=== PATIENT | female | born 1995 | race Caucasian/White ===

== ENCOUNTER 2023-06-09 07:39 | Emergency (ER) | payer OTHER, SELFPAY ==
--- NOTE | ~2023-06-09 | US_ITS ---
EXAMINATION: US VENOUS WITH DOPPLER UPPER EXTREMITY, LEFT CLINICAL INFORMATION: Left arm heaviness. Patient on control pills COMPARISON: None available. TECHNIQUE: Ultrasound of the upper extremity is performed using compression sonography and color and pulse Doppler flow with assessment of augmentation of flow. There is also imaging and Doppler assessment of the jugular and subclavian veins. Spectral analysis with color-flow imaging is performed. FINDINGS: Respiratory variation are noted throughout the upper extremity including the axillary, brachial, basilic, cephalic and radial and ulnar veins. There is normal flow in the internal jugular and subclavian veins. There is no visible deep or superficial thrombophlebitis. US/US venous duplex UE LT IMPRESSION: No DVT demonstrated in the left upper extremity.
--- NOTE | 2023-06-09 07:47 | ECG_ITS ---
Test Reason : tachy Blood Pressure : / mmHG Vent. Rate : 104 BPM Atrial Rate : 104 BPM P-R Int : 124 ms QRS Dur : 078 ms QT Int : 330 ms P-R-T Axes : 037 055 055 degrees QTc Int : 433 ms Sinus tachycardia Otherwise normal ECG No previous ECGs available Referred By: Generic ED Physician Electronically Signed By:ARABELLA CHILD
[2023-06-09 08:03] VITALS: BP 137/74; PULSE 116; RESP 18; TEMP 34.3; O2SAT 100; BMI 26.9
[2023-06-09 08:12] LABS: MANUAL DIFF FLAG NO
[2023-06-09 08:15] LABS: Basophils Percent Auto 0.5 % (0-2); Eosinophils Absolute Auto 0.1 X10*3/uL (0.0-0.4); Eosinophils Percent Auto 2.2 % (0-4); Hematocrit 42.4 % (37.0-47.0); Hemoglobin 14.4 g/dl (12.0-16.0); Imm Gran Abs Auto 0.01 X10*3/uL (0.00-0.03); Imm Gran Pct Auto 0.2 % (0.0-0.4); Lymphocytes Absolute Auto 1.8 X10*3/uL (1.2-4.9); Lymphocytes Percent Auto 28.5 % (20-40); Mean Corpuscular Hemoglobin 28.7 pg (27.0-33.0); Mean Corpuscular Volume 84.6 fL (80.0-98.0); Mean Platelet Volume 9.5 fL (9.4-12.3); Monocytes Absolute Auto 0.3 X10*3/uL (0.1-1.2); Monocytes Percent Auto 4.5 % (2-11); Neutrophils Absolute Auto 4.1 x10*3/uL (2.0-8.3); Neutrophils Percent Auto 64.1 % (45-73); Platelet Count 267 X10*3/uL (160-400); Red Blood Count 5.01 X10*6/uL (4.20-5.50); Red Cell Distribution Width 12.6 % (11.0-16.0); White Blood Count 6.5 X10*3/uL (4.8-10.8)
[2023-06-09 08:27] LABS: Alanine Aminotransferase 30 U/L (0-31); Albumin Level 4.3 g/dL (3.5-5.0); Alkaline Phosphatase 83 U/L (39-117); Anion Gap 13 (12-20); Aspartate Amino Transferase 16 U/L (5-31); Bilirubin Direct 0.3 mg/dL (0.0-0.5); Bilirubin Total 1.2 mg/dL (0.0-1.0); Blood Urea Nitrogen 13 mg/dL (9-16); Calcium 9.2 mg/dL (8.4-10.2); Carbon Dioxide 21 mmol/L (22-29); Chloride 112 mmol/L (96-108); Creatinine Clr Calc Pharmacy 82.5; Estimated Glomerular Filt Rate > 60; Glucose Random 93 mg/dL (60-115); Lipase 22 U/L (8-78); Potassium 3.7 mmol/L (3.3-5.1); Sodium 142 mmol/L (135-145); Total Protein 7.2 g/dL (6.5-8.0)
[2023-06-09 08:34] LABS: Troponin-I High Sensitivity < 2.7 ng/L (<3.5-17.0)
[2023-06-09 10:25] VITALS: BP 119/78; PULSE 84; RESP 12; O2SAT 100
--- NOTE | 2023-06-09 11:05 | ED.ARRPALP ---
HPI - Arrhythmia/Palpitations General Chief Complaint: Arrhythmia/Palpitations Stated Complaint: Heart racing, heaviness in arms Time Seen by Provider: 06/09/23 10:51 Source: patient Mode of arrival: ambulatory Limitations: no limitations History of Present Illness HPI narrative: 28-year-old female who presents emergency department for evaluation of left arm heaviness x3 weeks with palpations shortness of breath dizziness and diaphoresis this morning. The patient states that over the last 3 weeks she has had heaviness in her left arm. She states that she gets that almost daily and heaviness will last all day. She states that at night when she is relaxed the heaviness seems to resolve. She denied numbness or weakness of the left upper extremity. She has had no clumsiness of the arm, she denies difficulty grasping things ordered having difficulty with dropping things. She denied neck pain. She denies weight loss, weight gain or night sweats. She states that this morning she rolled over and woke up and felt her heart was racing. She put on her Apple watch and her pulse was 140-150 beats per minute. She felt short of breath, lightheaded, dizzy and had sweats. She did feel palpitations but denied chest pain. Her symptoms resolved after an hour and a half. The patient does take control pills but has not noticed any significant swelling of her upper or lower extremities. Related Data Allergies Allergy/AdvReac Type Severity Reaction Status Date / Time No Known Allergies Allergy Verified 06/09/23 08:07 [No Known Allergies*] Review of Systems Review of Systems: Yes all other systems are reviewed and are negative [facility] Past Medical History [facility] Narrative: Past medical history: Asthma, and anxiety which she states she does not take medications for. Social history: She denies tobacco, alcohol and drug use Social History Social History Alcohol intake: never Smoked in Last 30 Days: No Use of substances other than those prescribed or required for medical reasons: No Advance Directives: No Advance Directives Information Provided: No Patient : No Physical Exam Vital Signs: Vital Signs: Last Vital Signs Temp 93.7 F L 06/09/23 08:03 Pulse 84 06/09/23 10:25 Resp 12 06/09/23 10:25 BP 119/78 06/09/23 10:25 Pulse Ox 100 06/09/23 10:25 O2 Del Method Room Air 06/09/23 10:25 BMI result Body Mass Index 26.9 Vital signs were normal except for low temperature of 93.7 degrees, I will repeat patient's temperature he was admitted not think this is accurate reading Exam: General: Awake, alert in no distress Head: Normocephalic, atraumatic EENT: PERRL, Lids normal, sclera normal, conjunctiva normal, nose normal , ears normal, throat without erythema or exudates Neck: Supple, no adenopathy, no trachea midline or C-spine tenderness Lung: breath sounds symmetric, no wheezing, rales or rhonchi Chest: symmetric movement, nontender Heart: regular rate and rhythm, normal S1, S2 no murmurs or rubs Abdomen: soft, non-tender, nondistended, normal bowel sounds Back: no vertebral tenderness, no CVAT Extremities: Right upper extremity: Neurovascular intact Left upper extremity: Full range of motion of the shoulder, elbow, wrist and hand joints both actively and passively with no discomfort, no difference in the size of the patient's left and right upper extremity, no obvious edema noted, neurovascular intact Neuro: Awake, alert, oriented, normal speech, cranial nerves intact, moves all extremities symmetrically Psych: Pleasant, cooperative Medical Decision Making Medical Decision Making MDM Narrative: 28 year old female with history of asthma and anxiety who presents emergency department for evaluation of 3 weeks of heaviness in her left upper extremity and new onset of palpitations this morning with a heart rate ranging between 104-150 beats per minute associated with lightheadedness, diaphoresis, shortness of breath, diaphoresis and sensation of palpitations but no chest pain. Patient's physical examination was unremarkable. Following evaluation was ordered: CBC, BMP, liver panel, lipase, troponin, urinalysis, urine test, TSH with reflex T4, EKG, venous duplex ultrasound of the left upper extremity, cardiac monitoring, O2 saturation monitor 11:24 My independent interpretation patient's laboratory evaluation is as follows: CBC and CMP were unremarkable. High sensitive troponin I was below detectable limits. Lipase was negative. My independent interpretation patient's 12 EKG is as follows: Sinus tachycardia with rate of 104, normal AL interval, QRS duration QTC interval, no ST segment elevation, no ST segment depression, no T-wave abnormalities, no PACs no PVCs 13:34 Patient duplex ultrasound of her left upper extremity revealed no DVT which is reassuring I did discuss this finding with the patient and workup of palpitations. I also felt the patient could benefit from getting help with her anxiety therefore she will be referred to [facility]. She was given printed and verbal instructions and discharged home Differential Diagnosis Differential Diagnoses: The differential diagnosis associated with the presentation includes Differential diagnosis includes was not limited to palpitations, anxiety, panic attack, cervical radiculopathy, left upper extremity DVT Admission/Observation Consideration of admission/observation: Escalation of care including admission/observation considered Lab Data MDM Lab Attestation statement: I reviewed the patient's lab results. See above from my interpretation 06/09/23 08:08 06/09/23 08:08 Labs: Lab Results 06/09/23 Range/Units 08:08 WBC 6.5 (4.8-10.8) X10*3/uL RBC 5.01 (4.20-5.50) X10*6/uL Hgb 14.4 (12.0-16.0) g/dl Hct 42.4 (37.0-47.0) % MCV 84.6 (80.0-98.0) fL MCH 28.7 (27.0-33.0) pg MCHC 34.0 (31.0-35.0) g/dl RDW 12.6 (11.0-16.0) % Plt Count 267 (160-400) X10*3/uL MPV 9.5 (9.4-12.3) fL Immature Gran % (Auto) 0.2 (0.0-0.4) % Neut % (Auto) 64.1 (45-73) % Lymph % (Auto) 28.5 (20-40) % Webster % (Auto) 4.5 (2-11) % Eos % (Auto) 2.2 (0-4) % Baso % (Auto) 0.5 (0-2) % Lymph # (Auto) 1.8 (1.2-4.9) X10*3/uL [place] # (Auto) 0.3 (0.1-1.2) X10*3/uL Eos # (Auto) 0.1 (0.0-0.4) X10*3/uL Baso # (Auto) 0.0 (0.0-0.2) X10*3/uL Abs Immat Gran (auto) 0.01 (0.00-0.03) X10*3/uL Absolute Neuts (auto) 4.1 (2.0-8.3) x10*3/uL Absolute Nucleated RBC 0.000 (0.0-0.012) X10*3/uL Nucleated RBC % (auto) 0.0 (0.0-0.2) /100WBC Sodium 142 (135-145) mmol/L Potassium 3.7 (3.3-5.1) mmol/L Chloride 112 H (96-108) mmol/L Carbon Dioxide 21 L (22-29) mmol/L Anion Gap 13 (12-20) BUN 13 (9-16) mg/dL Creatinine 0.83 (0.5-1.4) mg/dL Estim Creat Clear Calc 82.5 Estimated GFR > 60 Random Glucose 93 (60-115) mg/dL Calcium 9.2 (8.4-10.2) mg/dL Total Bilirubin 1.2 H (0.0-1.0) mg/dL Direct Bilirubin 0.3 (0.0-0.5) mg/dL AST 16 (5-31) U/L ALT 30 (0-31) U/L Alkaline Phosphatase 83 (39-117) U/L Troponin I High Sens < 2.7 (<3.5-17.0) ng/L Total Protein 7.2 (6.5-8.0) g/dL Albumin 4.3 (3.5-5.0) g/dL Lipase 22 (8-78) U/L TSH 1.51 (0.32-4.0) uIU/mL Independent Interpretation I performed an independent interpretation of an: EKG (See above my interpretation) Radiology Impression Discussion of test interpretation with radiology: I have reviewed the radiologist's reading. Radiologist Impression: US venous duplex UE LT IMPRESSION: No DVT demonstrated in the left upper extremity. Dictated By: Bridgette Barbosa MD Independent Historian Clinical information obtained from an independent historian. History obtained from or confirmed by: Spouse Discharge Plan Discharge Clinical Impression: Palpitations, Anxiety Patient Disposition: Home, Self-Care Instructions: Heart Palpitations (ED), Anxiety (ED) Additional Instructions: Your blood work was normal. Your EKG was unremarkable. The duplex ultrasound of your left upper extremity did not reveal any blood clots which is reassuring. At this time I do did not have a clear cause for the heaviness that your experiencing in your arm. If you developed swelling, weakness, numbness or any other concerning symptoms involving your arms we then please return to the emergency department so that we can re-evaluate. At this time I do not think that you need further workup for your palpitations unless you continue to get them frequent then you can follow-up with our cardiology or your primary care doctor. I do want you to follow-up with [facility] to see if they can get you a therapist to help you with your anxiety and possibly get a prescribing provider to help you if you need medications. [facility] phone number is . There is also another service called [employer] if [facility] cannot help Follow-up with your doctor in 2 days. Please return to the emergency department if your symptoms get worse or if you develop any symptoms that are concerning to you. Try calling the following numbers to see if you can get a primary care provider to help you with your medical problems. [facility] PCP referral line [facility] Adult primary care and family medicine [facility] Referrals: Alex Fatima MD [Physician] - 2 weeks (Palpitations)
[2023-06-09 12:12] LABS: TSH reflex Free T4 1.51 uIU/mL (0.32-4.0)
== END 2023-06-09 13:53 | disposition home or self-care (01) ==
PROVIDERS: Emergency Provider Emergency Medicine Emergency Medical Services
DX: R00.2 Palpitations (principal); F41.9 Anxiety disorder, unspecified; M79.602 Pain in left arm; Z79.899 Other long term (current) drug therapy
CPT/HCPCS: 36415; 80048; 80076; 83690; 84443; 84484; 85025; 93005; 93971; 99284; 99285

== ENCOUNTER → 2023-06-09 07:47 | Outpatient (BNV) | payer OTHER, SELFPAY | PROVIDERS: Emergency Provider Emergency Medicine Emergency Medical Services; Visit Provider Internal Medicine | DX: R00.0 Tachycardia, unspecified (principal) | CPT/HCPCS: 93010 ==

== ENCOUNTER 2023-09-26 10:42 | Outpatient (AMB) | payer OTHER, SELFPAY ==
--- NOTE | 2023-09-26 10:49 | A.OFFPC_ITS ---
Vital Signs 09/26/23 10:52 Height 5 ft Weight 144 lb BMI 28.1 BP 121/74 Blood Pressure Location Rt brachial Position Sitting Respiration 13 Pulse 106 H Pulse Source Pulse Oximeter Temp 97.9 F Temp Source Temporal Artery Scan Pulse Oximetry (%) 100 Oxygen Delivery Method Room Air Intake Visit Reasons: HEAD GROWER, request physical Intake Note: Patient is here for a new patient appointment. Patient reports she has concerns for anxiety and tachycardia- was in the ER June 2023. Patient reports having constipation this past week- and now there is some red in her stool. Patient reports she needs her inhaler, Albuterol for rescue, and refilled as well. Patient was previously on flovent but has not needed it in quite some time. Staff Nurse Midwife Required: No Accompanied by: Self / Same As Patient Allergies amoxicillin Allergy (Severe, Verified 09/26/23 11:38) Anxiety Medication List - Last Reconciled 09/26/23 by Zahra Nova, [facility]- albuterol sulfate 90 mcg/actuation 2 inhalations inhalation Q4-6H PRN norethindrone-e.estradiol-iron 1 mg-20 mcg (21)/75 mg (7) (07/23 (28)) 1 tab PO DAILY Tobacco use date assessed: 09/26/23 Dental Screening Dental Screen Date: 09/26/23 Did you have a dental visit in the last 12 months?: No Did you have a dental problem in the last 6 months where you did not have access to dental care?: Yes Was dental information given to patient?: Patient has dentist HPI HPI Comments History of Present Illness Details 28-year-old female with generalized anxi ety disorder, mild intermittent asthma, seasonal allergies Health maintenance Pap UTD Vaccines: declines flu , unsure about Tdap however declines today [facility]ists [employer] Here today to establish care. No previous medical records accept for the emergency room visit in June for me to review prior to today's visit. tachycardia - monitors on watch at home. Feels like its better since onset. Feels this is related to anxiety. Denies chest pain or shortness and breath. IVETT - was on medication in the past. Paroxetine, unsure of dose. Took for 3 months and then ran out of refills this was in 2021. [place] well while taking it. Interested in restarting. Active with counseling in the past. Would like new referral. No self medication. Asthma- was active w/ Pulm in the past. Not currently on maintenance inhaler.At this time, feels her sx are pretty well controlled. Has used Flonase in the past with + results. Admits an allergic component to her symptoms. Not on a daily antihistamine. constipation - over the last few days, noted some BRB on stool. Does not eat a lot of fiber. started to take a multivitamin. [facility] Medical History (Updated 09/26/23 @ 12:02 by Zahra Nova, [facility]) Anxiety Surgical History (Updated 09/26/23 @ 11:00 by Sallie Morin CMA) [place] teeth extracted Family History (Updated 09/26/23 @ 11:01 by Sallie Morin CMA) Other Mental health disorder Substance use disorder Social History (Updated 09/26/23 @ 11:02 by Sallie Morin CMA) Household Members: Spouse Housing: House Are you a primary child day care center worker to a significant other at home: No Do you presently have visiting nurse or other home services: No 75 years or older and lives alone: No Alcohol intake: never Patient Tobacco Use Status: Never used Tobacco e-Cigarette/Vaping Use: Never Used service: Yes Current occupational status: employed Current occupation: Patient works at the [employer] Sexual orientation: Straight/Heterosexual Gender identity: Female Cognitive needs: No Hearing needs: No Vision needs: Yes (needs a vision exam ) Questionnaire PHQ-9 Over the last 2 weeks, how often have you been bothered by any of the following problems? 1. Little interest or pleasure in doing things: not at all 2. Feeling down, depressed, or hopeless: not at all 3. Trouble falling or staying asleep, or sleeping too much: several days 4. Feeling tired or having little energy: several days 5. Poor appetite or overeating: several days 6. Feeling bad about yourself - or that you are a failure or have let yourself or your family down: nearly every day 7. Trouble concentrating on things, such as reading the newspaper or watching television: not at all 8. Moving or speaking so slowly that other people could have noticed. Or the opposite - being so fidgety or restless that you have been moving around a lot more than usual: not at all 9. Thoughts that you would be better off or of hurting yourself in some way: not at all Total score: 6 Depression Screening Interpretation: Positive Depression Screening Follow-up: Existing condition and Change in Medication Depression Screening Done: Yes 48845 - PHQ-9 Billing: Yes Source: Developed by Drs. Oliverio Walton, Avelina Humphreys, Jacek Plata and colleagues, with an educational coy from [employer]. AUDIT C Alcohol Use Questionnaire (AUDIT-C) 1. How often do you have a drink containing alcohol?: Never 2. How many drinks containing alcohol do you have on a typical day when you are drinking?: 1 or 2 3. How often do you have six or more drinks on one occasion?: Never Total Score: 0 Score Reviewed/Action Taken: Yes IVETT-7 AMB Questionnaire IVETT-7 Feeling nervous, anxious, or on edge: 3 = Nearly every day Not being able to stop or control worryin = Nearly every day Worrying too much about different things: 3 = Nearly every day Trouble relaxin = Nearly every day Being so restless that it is hard to sit still: 0 = Not at all Becoming easily annoyed or irritable: 0 = Not at all Feeling afraid as if something awful might happen: 3 = Nearly every day Total IVETT-7 score (0-4 normal; 5-9 mild; 10-14 moderate; 15-21 severe): 15 Source: Developed by Drs. Oliverio Walton, Avelina Humphreys, Jacek Plata and colleagues, with an educational coy from [employer]. IVETT-7 Assessment Billing IVETT-7 Assessment Tool: IVETT-7 Assessment 88491 ACT Questionnaire In the past 4 weeks, how much of the time did your asthma keep you from getting as much done at work, school or at home?: None of the time During the past 4 weeks, how often have you had shortness of breath?: Not at all During the past 4 weeks, how often did your asthma symptoms wake you up at night or earlier than usual in the morning?: Not at all During the past 4 weeks, how often have you had to use your rescue inhaler or nebulizer medication?: Not at all How would you rate your asthma control during the past 4 weeks?: Well controlled ACT Interpretation: Negative Score: 24 Review of Systems Const All systems reviewed & are unremarkable except as noted in HPI and below Physical exam (Primary Care) Vital Signs: Last Vital Signs Temp 97.9 F 09/26/23 10:52 Pulse 106 H 09/26/23 10:52 Resp 13 09/26/23 10:52 BP 121/74 09/26/23 10:52 Pulse Ox 100 09/26/23 10:52 Oxygen Delivery Method Room Air 09/26/23 10:52 BMI result Body Mass Index 28.1 Tobacco/Smoking Status: Tobacco use Status Tobacco use date assessed 09/26/23 09/26/23 11:02 Patient Tobacco Use Status Never used Tobacco 09/26/23 11:02 e-Cigarette/Vaping Use Never Used 09/26/23 11:02 PHQ-9: PHQ-9 Score PHQ-9: Total score 6 09/26/23 11:47 Depression Screening Interpretation: Positive Depression Screening Follow-up: Existing condition and Change in Medication Const Other: awake alert NAD RRR LS CTAB mildly anxious, appropriate and pleasant Assessment and Plan Assessment & Plan (1) IVETT (generalized anxiety disorder): Comment: start paroxetine 10mg QD, refer to counseling bring back in 6 weeks, titrate med to effect Code(s): F41.1 - Generalized anxiety disorder (2) Mild intermittent asthma in adult without complication: Comment: on TARA only with sparing use Plan: continue was on flovent in past, does not feel its needed at this time Code(s): J45.20 - Mild intermittent asthma, uncomplicated (3) Seasonal allergies: Comment: start zyrtec 10mg QD goal would be to help control her asthma sx which seem to have an allergy component and to help her anxiety. Code(s): J30.2 - Other seasonal allergic rhinitis (4) Constipation: Comment: w some hemorrhoidal bleeding advised to increase fiber in diet by using things such as Fiber 1 products if cont to be an issue, will need to discuss other options for treatment Code(s): K59.00 - Constipation, unspecified Qualifiers: Constipation type: slow transit constipation Qualified Code(s): K59.01 - Slow transit constipation Plan: This note is constructed using voice recognition software. While every effort has been made to ensure accuracy in nurse, still errors may have been included Sometimes, these errors may affect the content or meaning of the given sentence . Total time spent caring for the patient today was 45 minutes. This includes time spent before the visit reviewing the chart, time spent during the visit, and time spent after the visit on documentation Orders: Referrals Counseling Referral F41.1 - Generalized anxiety disorder Medications: New albuterol sulfate 90 mcg/actuation 2 inhalations inhalation QID PRN 8.5 grams 0RF shortness of breath or wheezing paroxetine HCl 10 mg PO DAILY 30 tabs 1RF cetirizine (Zyrtec) 10 mg PO DAILY 90 tabs 0RF Review Flu Vaccine not done: patient reason Declined TDap/Td: 09/26/23 Coding Level of Care Code Est Pt Level 5 (62067) Diagnoses IVETT (generalized anxiety disorder) F41.1 Mild intermittent asthma in adult without complication J45.20 Seasonal allergies J30.2 Slow transit constipation K59.01 Constipation type: slow transit constipation Additional Codes IVETT-7 Assessment Billing - IVETT-7 Assessment Tool: IVETT-7 Assessment 67163 ([id number])
[2023-09-26 10:52] VITALS: BP 121/74; PULSE 106; RESP 13; TEMP 36.6; O2SAT 100; BMI 28.1
== END 2023-09-26 12:00 | disposition home or self-care (01) ==
PROVIDERS: PCP Nurse Practitioner Family; Visit Provider Nurse Practitioner Family
DX: J45.20 Mild intermittent asthma, uncomplicated (principal); F41.1 Generalized anxiety disorder; J30.2 Other seasonal allergic rhinitis; K59.01 Slow transit constipation
CPT/HCPCS: 96127; 99215

== ENCOUNTER 2023-11-22 09:50 | Outpatient (AMB) | payer OTHER, SELFPAY ==
--- NOTE | 2023-11-22 09:55 | A.OFFPC_ITS ---
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 Accompanied by: Self / Same As Patient Allergies amoxicillin Allergy (Severe, Verified 11/22/23 10:11) Anxiety Medication List - Last Reconciled 11/22/23 by Zahra Nova, [facility]- albuterol sulfate 90 mcg/actuation 2 inhalations inhalation QID PRN cetirizine (Zyrtec) 10 mg PO DAILY norethindrone-e.estradiol-iron 1 mg-20 mcg ()/75 mg () (07/23 ()) 1 tab PO DAILY paroxetine HCl 10 mg PO DAILY Tobacco use date assessed: 09/26/23 Dental Screening Dental Screen Date: 09/26/23 HPI HPI Comments History of Present Illness Details 28-year-old female with generalized anxi ety disorder, mild intermittent asthma, seasonal allergies Specialists [employer] Here today to follow-up on generalized anxiety disorder, constipation, seasonal allergies. Since last office visit in regards to her anxiety, Feels so much better, family and friends have noticed a great improvement. Taking in the AM with food. Did have headaches and GI upset in the first week. This remedied with taking with food. Did not start the Zyrtec. Afraid to mix with other meds. She will start taking this at bedtime as she continues to have seasonal allergy symptoms. Constipation is better, has improved since last visit. Does cont to have hemorrhoid however better than last visit. [facility] Medical History Anxiety Surgical History Word[place] teeth extracted Family History Other Mental health disorder Substance use disorder Social History Household Members: Spouse Housing: House Are you a primary home health care worker to a significant other at home: No Do you presently have visiting nurse or other home services: No 75 years or older and lives alone: No Alcohol intake: never Patient Tobacco Use Status: Never used Tobacco e-Cigarette/Vaping Use: Never Used service: No Current occupational status: employed Current occupation: Patient works at the [employer] Sexual orientation: Straight/Heterosexual Gender identity: Female Cognitive needs: No Hearing needs: No Vision needs: Yes (needs a vision exam ) Questionnaire PHQ-9 Over the last 2 weeks, how often have you been bothered by any of the following problems? 1. Little interest or pleasure in doing things: not at all 2. Feeling down, depressed, or hopeless: not at all 3. Trouble falling or staying asleep, or sleeping too much: not at all 4. Feeling tired or having little energy: not at all 5. Poor appetite or overeating: not at all 6. Feeling bad about yourself - or that you are a failure or have let yourself or your family down: not at all 7. Trouble concentrating on things, such as reading the newspaper or watching television: not at all 8. Moving or speaking so slowly that other people could have noticed. Or the opposite - being so fidgety or restless that you have been moving around a lot more than usual: not at all 9. Thoughts that you would be better off or of hurting yourself in some way: not at all Total score: 0 Depression Screening Interpretation: Negative Depression Screening Done: Yes 43075 - PHQ-9 Billing: Yes Source: Developed by Drs. Oliverio Walton, Avelina Humphreys, Jacek Plata and colleagues, with an educational coy from [employer]. IVETT-7 AMB Questionnaire IVETT-7 Date IVETT - 7 assessed: 11/22/23 Feeling nervous, anxious, or on edge: 1 = Several days Not being able to stop or control worryin = Several days Worrying too much about different things: 1 = Several days Trouble relaxin = Not at all Being so restless that it is hard to sit still: 0 = Not at all Becoming easily annoyed or irritable: 0 = Not at all Feeling afraid as if something awful might happen: 1 = Several days Total IVETT-7 score (0-4 normal; 5-9 mild; 10-14 moderate; 15-21 severe): 4 Source: Developed by Drs. Oliverio Walton, Avelina Humphreys, Jacek Plata and colleagues, with an educational coy from [employer]. IVETT-7 Assessment Billing IVETT-7 Assessment Tool: IVETT-7 Assessment 59406 ACT Questionnaire In the past 4 weeks, how much of the time did your asthma keep you from getting as much done at work, school or at home?: None of the time During the past 4 weeks, how often have you had shortness of breath?: Not at all During the past 4 weeks, how often did your asthma symptoms wake you up at night or earlier than usual in the morning?: Not at all During the past 4 weeks, how often have you had to use your rescue inhaler or nebulizer medication?: Not at all How would you rate your asthma control during the past 4 weeks?: Completely controlled ACT Interpretation: Negative Score: 25 Review of Systems Const All systems reviewed & are unremarkable except as noted in HPI and below Physical exam (Primary Care) Vital Signs: Last Vital Signs Temp 97.6 F 11/22/23 09:56 Pulse 89 11/22/23 09:56 Resp 13 11/22/23 09:56 BP 114/62 11/22/23 09:56 Pulse Ox 99 11/22/23 09:56 Oxygen Delivery Method Room Air 11/22/23 09:56 BMI result Body Mass Index 27.9 Tobacco/Smoking Status: Tobacco use Status Tobacco use date assessed 09/26/23 11/22/23 10:04 Patient Tobacco Use Status Never used Tobacco 11/22/23 10:04 e-Cigarette/Vaping Use Never Used 11/22/23 10:04 PHQ-9: PHQ-9 Score PHQ-9: Total score 0 11/22/23 10:11 Depression Screening Interpretation: Negative Const Other: awake alert NAD RRR LS CTAB Smiling, engaging, pleasant, future oriented Assessment and Plan Assessment & Plan (1) Constipation: Comment: w some hemorrhoidal bleeding which has improved since last office visit with increase fiber in diet by using things such as Fiber 1 products Continue. Code(s): K59.00 - Constipation, unspecified Qualifiers: Constipation type: slow transit constipation Qualified Code(s): K59.01 - Slow transit constipation (2) Seasonal allergies: Comment: start zyrtec 10mg QD goal would be to help control her asthma sx which seem to have an allergy component and to help her anxiety. Code(s): J30.2 - Other seasonal allergic rhinitis (3) IVETT (generalized anxiety disorder): Comment: Great improvement in her symptoms with use of paroxetine 10mg QD, continue. referred to counseling bring back in 6 months Code(s): F41.1 - Generalized anxiety disorder Medications: Refilled paroxetine HCl 10 mg PO DAILY 90 tabs 1RF Patient Instructions: Return to office in 6 months to follow up on generalized anxiety disorder. Sooner if needed. Coding Level of Care Code Est Pt Level 4 (55371) Diagnoses Slow transit constipation K59.01 Constipation type: slow transit constipation Seasonal allergies J30.2 IVETT (generalized anxiety disorder) F41.1 Additional Codes IVETT-7 Assessment Billing - IVETT-7 Assessment Tool: IVETT-7 Assessment 98645 ([id number])
[2023-11-22 09:56] VITALS: BP 114/62; PULSE 89; RESP 13; TEMP 36.4; O2SAT 99; BMI 27.9
== END 2023-11-22 10:21 | disposition home or self-care (01) ==
PROVIDERS: PCP Nurse Practitioner Family; Visit Provider Nurse Practitioner Family
DX: K59.01 Slow transit constipation (principal); J30.2 Other seasonal allergic rhinitis; F41.1 Generalized anxiety disorder
CPT/HCPCS: 99214

== ENCOUNTER 2024-05-08 08:24 | Outpatient (AMB) | payer BC, OTHER, SELFPAY ==
--- NOTE | 2024-05-08 08:26 | MHC.PC.OV ---
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 Allergies amoxicillin Allergy (Severe, Verified 05/08/24 08:40) Anxiety Medication List - Last Reconciled 05/08/24 by Zahra Nova, [facility] albuterol sulfate 90 mcg/actuation 2 inhalations inhalation QID PRN cetirizine (Zyrtec) 10 mg PO DAILY norethindrone-e.estradiol-iron 1 mg-20 mcg ()/75 mg () ( FE 07/23 (28)) 1 tab PO DAILY paroxetine HCl 10 mg PO DAILY Tobacco use date assessed: 09/26/23 Dental Screening Dental Screen Date: 09/26/23 HPI HPI Comments History of Present Illness Details 29-year-old female with generalized anxiety disorder, mild intermittent asthma, seasonal allergies, constipation, hemorrhoids Social: recently . Going on [place] to the [facility] in July Family hx: maternal uncle lung ca d/t smoking, no other changes Surgical hx: None Health maintenance Pap UTD, 04/2024 Vaccines: declines flu , unsure about Tdap however declines today [facility] exam 2023, wear glasses Dentist routine Here today for CPE. IVETT is much better, manageable. Did not start care w/ counselor. Putting self in comfortable situations. Allows stressors to roll off. and friends have noticed a difference. Asthma/Allergies has not needed albuterol, breathing is well controlled. Left ring finger, in late spring, while getting nails done noticed a discolored line. It has not changed. No nail changes. It is pink color. Picking at it, it comes off. No other skin concerns. Sleeping good. Appetite is normal Hearing normal w/o hearing aides. Plan: Have gel kazakh grow off/removed. Monitor nail bed. Edu about reasons to notify me. Continue all medications as currently prescribed. Refill sent on paroxetine. Continue care with care team Please send me a message via the portal if you feel like you need something for anxiety prior to her flight. At that time can prescribe lorazepam only for the flight to help with anxiety. Return to office in 6 months to follow up on generalized anxiety, sooner as needed [facility] Medical History Anxiety Surgical History [place] teeth extracted Family History Other Mental health disorder Substance use disorder Social History Household Members: Spouse Housing: House Are you a primary long term care phlebotomist to a significant other at home: No Do you presently have visiting nurse or other home services: No 75 years or older and lives alone: No Alcohol intake: never Patient Tobacco Use Status: Never used Tobacco e-Cigarette/Vaping Use: Never Used service: No Current occupational status: employed Current occupation: Patient works at the [employer] Sexual orientation: Straight/Heterosexual Gender identity: Female Cognitive needs: No Hearing needs: No Vision needs: Yes (needs a vision exam ) Questionnaire PHQ-9 Over the last 2 weeks, how often have you been bothered by any of the following problems? 1. Little interest or pleasure in doing things: not at all 2. Feeling down, depressed, or hopeless: not at all 3. Trouble falling or staying asleep, or sleeping too much: not at all 4. Feeling tired or having little energy: not at all 5. Poor appetite or overeating: not at all 6. Feeling bad about yourself - or that you are a failure or have let yourself or your family down: not at all 7. Trouble concentrating on things, such as reading the newspaper or watching television: not at all 8. Moving or speaking so slowly that other people could have noticed. Or the opposite - being so fidgety or restless that you have been moving around a lot more than usual: not at all 9. Thoughts that you would be better off or of hurting yourself in some way: not at all Total score: 0 Depression Screening Interpretation: Negative Depression Screening Done: Yes 38217 - PHQ-9 Billing: Yes Source: Developed by Drs. Oliverio Walton, Avelina Humphreys, Jacek Plata and colleagues, with an educational coy from [employer]. Thrive Questionnaire Date Thrive assessed: 05/08/24 I am a: Patient What is your living situation today?: I have a steady place to live Within the past 12 months, did the food you bought not last and you didn't have the money to get more?: Never true Within the past 12 months, did you worry whether your food would run out before you got money to buy more?: Never true Do you have trouble paying for medicines?: No Do you have trouble getting transportation to medical appointments?: No Do you have trouble paying your heating and electricity bill?: No Do you have trouble taking care of your child, family member or friend?: No Do you have trouble with day-to-day activities such as bathing, preparing meals, shopping, managing finances, etc.?: No Are you currently unemployed and looking for a job?: No Are you interested in more education?: No Please select the resources that you would like help with: None Currently or been in a relationship where the following occur: No concerns reported THRIVE Score: 0 AUDIT C Alcohol Use Questionnaire (AUDIT-C) 1. How often do you have a drink containing alcohol?: Never 2. How many drinks containing alcohol do you have on a typical day when you are drinking?: 1 or 2 3. How often do you have six or more drinks on one occasion?: Never Total Score: 0 Score Reviewed/Action Taken: Yes IVETT-7 AMB Questionnaire IVETT-7 Date IVETT - 7 assessed: 05/08/24 Feeling nervous, anxious, or on edge: 1 = Several days Not being able to stop or control worryin = Not at all Worrying too much about different things: 0 = Not at all Trouble relaxin = Not at all Being so restless that it is hard to sit still: 0 = Not at all Becoming easily annoyed or irritable: 0 = Not at all Feeling afraid as if something awful might happen: 0 = Not at all Total IVETT-7 score (0-4 normal; 5-9 mild; 10-14 moderate; 15-21 severe): 1 Source: Developed by Drs. Oliverio Walton, Avelina B.Jacek Jo and colleagues, with an educational coy from [employer]. IVETT-7 Assessment Billing IVETT-7 Assessment Tool: IVETT-7 Assessment 41455 ACT Questionnaire In the past 4 weeks, how much of the time did your asthma keep you from getting as much done at work, school or at home?: None of the time During the past 4 weeks, how often have you had shortness of breath?: Not at all During the past 4 weeks, how often did your asthma symptoms wake you up at night or earlier than usual in the morning?: Not at all During the past 4 weeks, how often have you had to use your rescue inhaler or nebulizer medication?: Not at all How would you rate your asthma control during the past 4 weeks?: Completely controlled ACT Interpretation: Negative Score: 25 Review of Systems Const Details: Constitutional: Denies fever. Skin: Denies rash. Eye: Denies eye pain. ENMT: Denies sore throat and nasal congestion. Respiratory: Denies shortness of breath and cough. Gastrointestinal: Denies nausea, vomiting or abdominal pain. Cardiovascular: Denies chest pain and syncope. Genitourinary: Denies dysuria. Musculoskeletal: Denies back pain and extremity pain. Neurologic: Denies headaches, confusion, and weakness. Psychiatric: Denies suicidal thoughts and substance abuse. Allergy/ Immunologic: Denies impaired immunity. Physical exam (Primary Care) Vital Signs: Last Vital Signs Pulse 79 05/08/24 08:30 Resp 13 05/08/24 08:30 BP 109/67 05/08/24 08:30 Pulse Ox 99 05/08/24 08:30 Oxygen Delivery Method Room Air 05/08/24 08:30 BMI result Body Mass Index 29.3 Tobacco/Smoking Status: Tobacco use Status Tobacco use date assessed 09/26/23 05/08/24 08:28 Patient Tobacco Use Status Never used Tobacco 05/08/24 08:28 e-Cigarette/Vaping Use Never Used 05/08/24 08:28 PHQ-9: PHQ-9 Score PHQ-9: Total score 0 05/08/24 08:28 Depression Screening Interpretation: Negative Thrive Assessment: Date of Thrive Assessment Date Thrive assessed 05/08/24 05/08/24 08:28 Currently or been in a relationship where the following occur: No concerns reported Const Other: General: Well developed, well nourished, in no acute distress. Appears stated age. Head: Normocephalic, atraumatic. Eyes: Pupils are equal, round and reactive to light and accommodation. Conjunctivae are clear. Vision grossly normal. Ears: TMs clear AU, EACS WNL Nose: Patent, without discharge. Mouth: There are no ulcers or lesions noted. No inflammation, no post nasal drip, no plaques nor exudates. Neck: Supple, no adenopathy or thyromegaly. Lungs: Clear to auscultation bilaterally. No rales, rhonchi or wheeze noted. Good air flow in all arreguin. Heart: Regular rate and rhythm. No murmurs, click, rubs or gallops are noted. Abdomen: Bowel sounds present in all quadrants. The abdomen is soft, nontender, with no masses or organomegaly noted. No hernias are noted. Musculoskeletal: Joints are nontender, without swelling, redness, or effusions. Range of motion is observed to be normal. Pulses: Peripheral pulses are equal and palpable bilaterally. Extremities: No clubbing, cyanosis nor edema is noted. Neurologic: Gait and station normal. Cranial Nerves 2-12 intact. Motor strength grossly symmetrical and intact. No sensory loss. Balance normal. Skin: No rashes, ulcers, or lesions noted. Turgor is good. Skin color is good. Hair and nails are without abnormalities. Psych: Normal eye contact, affect and mood appropriate, and normal interactions. Patient is alert and appropriate to context. Coding Level of Care Code Est Pt Prev Care 18-39y(57729) Diagnoses Encounter for general adult medical examination without abnormal findings Z00.00 Seasonal allergies J30.2 Mild intermittent asthma in adult without complication J45.20 IVETT (generalized anxiety disorder) F41.1 Additional Codes IVETT-7 Assessment Billing - IVETT-7 Assessment Tool: IVETT-7 Assessment 52501 ([id number]) Asthma Control Questionnaire - ACT Interpretation: Negative ([id number]) Assessment & Plan Assessment & Plan (1) Encounter for general adult medical examination without abnormal findings: Code(s): Z00.00 - Encounter for general adult medical examination without abnormal findings Plan: . (2) Seasonal allergies: Code(s): J30.2 - Other seasonal allergic rhinitis Category: Medical Plan: . (3) Mild intermittent asthma in adult without complication: Comment: on TARA only with sparing use Plan: continue was on flovent in past, does not feel its needed at this time Code(s): J45.20 - Mild intermittent asthma, uncomplicated Category: Medical Plan: . (4) IVETT (generalized anxiety disorder): Comment: Great improvement in her symptoms with use of paroxetine 10mg QD, continue. bring back in 6 months Code(s): F41.1 - Generalized anxiety disorder Category: Medical Plan: . Medications: Changed From cetirizine (Zyrtec) 10 mg PO DAILY 90 tabs 0RF To cetirizine (Zyrtec) 10 mg PO DAILY PRN 90 tabs 0RF allergy symptoms Refilled paroxetine HCl 10 mg PO DAILY 90 tabs 1RF Patient Instructions: Health screenings for women You should visit your health care provider from time to time, even if you are healthy. The purpose of these visits is to: Screen for medical issues Assess your risk for future medical problems Encourage a healthy lifestyle Update vaccinations and other preventive care services Help you get to know your provider in case of an illness Information Even if you feel fine, you should still see your provider for regular checkups. These visits can help you avoid problems in the future. For example, the only way to find out if you have high blood pressure is to have it checked regularly. High blood sugar and high cholesterol levels also may not have any symptoms in the early stages. A simple blood test can check for these conditions. There are specific times when you should see your provider or receive specific health screenings. The [place] Preventive Services Task Force publishes a list of recommended screenings. Below are screening guidelines for women ages 18 to 39. BLOOD PRESSURE SCREENING Your blood pressure should be checked at least once every 3 to 5 years if: Your blood pressure is in the normal range (top number less than 120 mm Hg and bottom number less than 80 mm Hg) You don't have risk factors for high blood pressure Ask your provider if you need your blood pressure checked more often if: The top number is 120 to 129 mm Hg or the bottom number is 70 to 79 mm Hg You have diabetes, heart disease, kidney problems, are overweight, or have certain other health conditions You have a first-degree relative with high blood pressure You are Black You had high blood pressure during a If the top number is 130 mm Hg or greater or the bottom number is 80 mm Hg or greater, this is considered stage 1 hypertension. Schedule an appointment with your provider to learn how you can reduce your blood pressure. Watch for blood pressure screenings in your area. Ask your provider if you can stop in to have your blood pressure checked. BREAST CANCER SCREENING Experts do not agree about the benefits of breast self-exams in finding breast cancer or saving lives. Talk to your provider about what is best for you. A screening mammogram is not recommended for most women under age 40. Your provider may discuss and recommend mammograms, MRI scans, or ultrasounds if you have an increased risk for breast cancer, such as: A mother or sister who had breast cancer at a young age (most often starting screening earlier than the age the close relative was diagnosed) You carry a high-risk genetic marker CERVICAL CANCER SCREENING Cervical cancer screening should start at age 21 years unless your provider advises otherwise. After the first test: Women ages 21 through 29 should have a Pap test every 3 years. Exoprts do not agree on whether HPV testing is recommended for this age group. Women ages 30 through 65 should be screened with either a Pap test every 3 years or the HPV test every 5 years or both tests every 5 years (called cotesting ). Women who have been treated for precancer (cervical dysplasia) should continue to have Pap tests for 20 years after treatment or until age 65, whichever is longer. If you have had your uterus and cervix removed (total hysterectomy), and you have not been diagnosed with cervical cancer or precancer (high grade cervical neoplasia), you do not need cervical cancer screening. CHOLESTEROL SCREENING Cholesterol screening should begin at: Age 45 for women with no known risk factors for coronary heart disease Age 20 for women with known risk factors for coronary heart disease Repeat cholesterol screening should take place: Every 5 years for women with normal cholesterol levels More often if changes occur in lifestyle (including weight gain and diet) More often if you have diabetes, heart disease, kidney problems, or certain other conditions DIABETES SCREENING You should be screened for diabetes starting at age 35 and then repeated every 3 years if you have no risk factors for diabetes. Screening may need to start earlier and be repeated more often if you have other risk factors for diabetes, such as: You have a first degree relative with diabetes. You are overweight or have obesity. You have high blood pressure, prediabetes, or a history of heart disease. Screening for diabetes should be done if you are planning to become and you are overweight and have other risk factors such as high blood pressure. DENTAL EXAM Go to the dentist once or twice every year for an exam and cleaning. Your dentist will evaluate if you need more frequent visits. EYE EXAM Have an eye exam every 5 to 10 years before age 40. If you have vision problems, have an eye exam every 2 years or more often if recommended by your provider. You should have an eye exam that includes an examination of your retina (back of your eye) at least every year if you have diabetes. IMMUNIZATIONS Commonly needed vaccines include: Flu shot: get one every year. COVID-19 vaccine: ask your provider what is best for you. Tetanus-diphtheria and acellular pertussis (Tdap) vaccine: have one at or after age 19 as one of your tetanus-diphtheria vaccines if you did not receive it as an adolescent. Tetanus-diphtheria: have a booster (or Tdap) every 10 years. Varicella vaccine: receive 2 doses if you never had chickenpox or the varicella vaccine. Hepatitis B vaccine: receive 2, 3, or 4 doses, depending on your exact circumstances. Measles, mumps, and rubella (MMR) vaccine: receive 1 to 2 doses if you are not already immune to MMR. Your provider can tell you if you are immune. Ask your provider about the human papillomavirus (HPV) vaccine if: You have not received the HPV vaccine in the past You have not completed the full vaccine series (you should catch up on this shot) Ask your provider if you should receive other immunizations if you have certain health problems that increase your risk for some diseases such as pneumonia. INFECTIOUS DISEASE SCREENING Women who are sexually active should be screened for chlamydia and gonorrhea up until age 25. Women 25 years and older should be screened for chlamydia and gonorrhea if at high risk. Screening for hepatitis C: All adults ages 18 to 79 should get a one-time test for hepatitis C. people should be screened at every . Screening for human immunodeficiency virus (HIV): All people ages 15 to 65 should get a one-time test for HIV. Depending on your lifestyle and medical history, you may also need to be screened for infections such as syphilis and HIV, as well as other infections. PHYSICAL EXAM All adults should visit their provider from time to time, even if they are healthy. The purpose of these visits is to: Screen for disease Assess your risk of future medical problems Encourage a healthy lifestyle Update your vaccinations and other preventive care services Maintain a relationship with a provider in case of an illness Your height, weight, and BMI should be checked at every exam. During your exam, your provider may ask you about: Depression and anxiety Diet and exercise Alcohol and tobacco use Safety issues, such as using seat belts, smoke detectors, and intimate partner violence Your medicines and risk for interactions SKIN SELF-EXAM Your provider may check your skin for signs of skin cancer, especially if you're at high risk, such as if you: Have had skin cancer before Have close relatives with skin cancer Have a weakened immune system OTHER SCREENING Talk with your provider about colon cancer screening if you have a strong family history of colon cancer or polyps, or if you have had inflammatory bowel disease or polyps yourself. Routine bone density screening of women under 40 is not recommended.
[2024-05-08 08:30] VITALS: BP 109/67; PULSE 79; RESP 13; O2SAT 99; BMI 29.3
== END 2024-05-08 08:59 | disposition home or self-care (01) ==
LOC: HO.HMCFM 08:25
PROVIDERS: PCP Nurse Practitioner Family; Visit Provider Nurse Practitioner Family
DX: Z00.00 Encounter for general adult medical examination without abnormal findings (principal); J30.2 Other seasonal allergic rhinitis; J45.20 Mild intermittent asthma, uncomplicated; F41.1 Generalized anxiety disorder

== ENCOUNTER → 2024-05-08 08:24 | Outpatient (BNVA) | payer BC, OTHER, SELFPAY | PROVIDERS: PCP Nurse Practitioner Family; Visit Provider Nurse Practitioner Family | DX: Z00.00 Encounter for general adult medical examination without abnormal findings (principal); J30.2 Other seasonal allergic rhinitis; J45.20 Mild intermittent asthma, uncomplicated; F41.1 Generalized anxiety disorder | CPT/HCPCS: 96127; 96160 ==

== ENCOUNTER 2024-11-06 08:57 | Outpatient (AMB) | payer BC, OTHER, SELFPAY ==
--- NOTE | 2024-11-06 08:59 | MHC.PC.OV ---
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 Allergies amoxicillin Allergy (Severe, Verified 11/06/24 09:05) Anxiety Medication List - Last Reconciled 11/06/24 by Zahra Nova, [facility]- albuterol sulfate 90 mcg/actuation 2 inhalations inhalation QID PRN cetirizine (Zyrtec) 10 mg PO DAILY PRN norethindrone-e.estradiol-iron 1 mg-20 mcg (21)/75 mg (7) ( FE 07/23 ()) 1 tab PO DAILY paroxetine HCl 10 mg PO DAILY Tobacco use date assessed: 11/06/24 Dental Screening Dental Screen Date: 11/06/24 Did you have a dental visit in the last 12 months?: Yes Did you have a dental problem in the last 6 months where you did not have access to dental care?: No Was dental information given to patient?: Patient has dentist HPI HPI Comments History of Present Illness Details 29-year-old female with generalized anxiety disorder, mild intermittent asthma, seasonal allergies, constipation, hemorrhoids Social: recently . Going on [place] to the [facility] in July Family hx: maternal uncle lung ca d/t smoking, no other changes Surgical hx: None Health maintenance Pap UTD, 04/2024 Vaccines: declines flu , unsure about Tdap however declines today Specialists DATA ENGINEER Optho exam 2023, wear glasses Dentist routine History of Present Illness - The patient is a 29-year-old female presenting with anxiety for a routine follow-up. - Generalized Anxiety Disorder: The patient reports good anxiety control with paroxetine 10 mg despite life stresses, such as unfulfilling work and home environment issues. No counselor has been established yet despite previous advice. She acknowledges the necessity for counseling due to recent exacerbations of stress. - Contraceptive Issues: The patient discusses dissatisfaction with oral contraceptive , reporting weight increases and significantly reduced libido. Her menstrual cycle is described as minimally light since starting the medication, with only light spotting occurring. Active w/ [facility],would like new referral. - Asthma and Allergies: A history of mild intermittent asthma requires refilling her albuterol inhaler soon. No recent exacerbations noted. Seasonal allergies managed with Zyrtec (pending refill) and current symptoms include postnasal drip and nasal dripping. Physical Exam General: Well developed, well nourished, in no acute distress. Appears stated age. Head: Normocephalic, atraumatic. Eyes: Pupils are equal, round and reactive to light and accommodation. Conjunctivae are clear. Lungs: Clear to auscultation bilaterally. No rales, rhonchi or wheeze noted. Good air flow in all arreguin. Heart: Regular rate and rhythm. No murmurs, click, rubs or gallops are noted. Psych: Mood and affect appropriate. Discussion Notes During the visit, we discussed the ongoing management of the patient's Generalized Anxiety Disorder. The patient reports that paroxetine 10 mg is effective in helping her stabilize her thoughts, reducing anxiety-related spiraling. We talked about the need for counseling to manage increasing anxiety due to work and domestic stressors, and I will refer her to our community navigation team, who will facilitate finding appropriate counseling services that suit her preferences. For contraceptive concerns, I informed her about the potential for weight changes and decreased libido associated with hormonal control. We discussed switching her contraceptive method to a non-hormonal IUD & recommended referral to [facility]. We reviewed her asthma management; her albuterol inhaler will be refilled. I also plan to refill her Zyrtec prescription, which she will have filled at a local [facility] to align with her insurance's preference. Assessment and Plan 1. Generalized Anxiety Disorder Anxiety is currently manageable with paroxetine 10 mg. Counseling referral will be initiated due to increasing stressors at work and home. Community navigation team support arranged. 2. Contraceptive Issues Exploring non-hormonal contraceptive alternatives due to weight and libido side effects of Junel. Referred to [facility] for consultation. 3. Asthma and Allergies Refill albuterol and Zyrtec prescriptions for continued management. Albuterol for asthma and Zyrtec for seasonal allergies. Patient Instructions - Continue taking paroxetine 10 mg daily. - Anticipate a call from the community navigation team to establish counseling. - Follow up with [facility] regarding control alternatives. - Be sure to fill albuterol and Zyrtec prescriptions at [facility]. - Monitor breathing; if symptoms worsen, use albuterol inhaler and seek care if needed. - Contact me or return for issues before the scheduled physical in May. Consent Patient was informed and verbally consented to the use of an ambient scribe for clinic note documentation during this visit. Total time spent caring for the patient today was 41 minutes. This includes time spent before the visit reviewing the chart, time spent during the visit, and time spent after the visit on documentation, reviewing laboratory results, diagnostic imaging, medications, performing a medically necessary evaluation, counseling on diagnoses, care coordination, ordering appropriate tests, ordering appropriate medications, review of tests performed by other providers, reporting test results with the patient, communication with other healthcare providers. [facility] Medical History Anxiety Surgical History [place] teeth extracted Family History Other Mental health disorder Substance use disorder Social History Household Members: Spouse Housing: House Are you a primary healthcare representative to a significant other at home: No Do you presently have visiting nurse or other home services: No 75 years or older and lives alone: No Alcohol intake: never Patient Tobacco Use Status: Never used Tobacco e-Cigarette/Vaping Use: Never Used service: No Current occupational status: employed Current occupation: Patient works at the [employer] Sexual orientation: Straight/Heterosexual Gender identity: Female Cognitive needs: No Hearing needs: No Vision needs: Yes (needs a vision exam ) Questionnaire PHQ-9 Over the last 2 weeks, how often have you been bothered by any of the following problems? 1. Little interest or pleasure in doing things: not at all 2. Feeling down, depressed, or hopeless: not at all 3. Trouble falling or staying asleep, or sleeping too much: not at all 4. Feeling tired or having little energy: not at all 5. Poor appetite or overeating: not at all 6. Feeling bad about yourself - or that you are a failure or have let yourself or your family down: not at all 7. Trouble concentrating on things, such as reading the newspaper or watching television: not at all 8. Moving or speaking so slowly that other people could have noticed. Or the opposite - being so fidgety or restless that you have been moving around a lot more than usual: not at all 9. Thoughts that you would be better off or of hurting yourself in some way: not at all Total score: 0 Depression Screening Interpretation: Negative Depression Screening Done: Yes 45624 - PHQ-9 Billing: Yes Source: Developed by Drs. Oliverio Walton, Avelina Humphreys, Jacek Plata and colleagues, with an educational coy from [employer]. Thrive Questionnaire Date Thrive assessed: 11/06/24 I am a: Patient What is your living situation today?: I have a steady place to live Within the past 12 months, did the food you bought not last and you didn't have the money to get more?: Never true Within the past 12 months, did you worry whether your food would run out before you got money to buy more?: Never true Do you have trouble paying for medicines?: No Do you have trouble getting transportation to medical appointments?: No Do you have trouble paying your heating and electricity bill?: No Do you have trouble taking care of your child, family member or friend?: No Do you have trouble with day-to-day activities such as bathing, preparing meals, shopping, managing finances, etc.?: No Are you currently unemployed and looking for a job?: No Are you interested in more education?: No Please select the resources that you would like help with: None Currently or been in a relationship where the following occur: No concerns reported THRIVE Score: 0 AUDIT C Alcohol Use Questionnaire (AUDIT-C) 1. How often do you have a drink containing alcohol?: Never 2. How many drinks containing alcohol do you have on a typical day when you are drinking?: 1 or 2 3. How often do you have six or more drinks on one occasion?: Never Total Score: 0 Score Reviewed/Action Taken: Yes IVETT-7 AMB Questionnaire IVETT-7 Date IVETT - 7 assessed: 11/06/24 Feeling nervous, anxious, or on edge: 1 = Several days Not being able to stop or control worryin = Several days Worrying too much about different things: 0 = Not at all Trouble relaxin = Not at all Being so restless that it is hard to sit still: 0 = Not at all Becoming easily annoyed or irritable: 0 = Not at all Feeling afraid as if something awful might happen: 0 = Not at all Total IVETT-7 score (0-4 normal; 5-9 mild; 10-14 moderate; 15-21 severe): 2 Source: Developed by Drs. Oliverio Walton, Avelina Humphreys, Jacek Plata and colleagues, with an educational coy from [employer]. IVETT-7 Assessment Billing IVETT-7 Assessment Tool: IVETT-7 Assessment 36173 ACT Questionnaire In the past 4 weeks, how much of the time did your asthma keep you from getting as much done at work, school or at home?: None of the time During the past 4 weeks, how often have you had shortness of breath?: Not at all During the past 4 weeks, how often did your asthma symptoms wake you up at night or earlier than usual in the morning?: Once or twice per week During the past 4 weeks, how often have you had to use your rescue inhaler or nebulizer medication?: Not at all How would you rate your asthma control during the past 4 weeks?: Completely controlled ACT Interpretation: Negative Score: 24 Physical exam (Primary Care) Vital Signs: Last Vital Signs Temp 97.6 F 11/06/24 09:03 Pulse 84 11/06/24 09:03 Resp 12 11/06/24 09:03 BP 98/68 11/06/24 09:03 Pulse Ox 98 11/06/24 09:03 Oxygen Delivery Method Room Air 11/06/24 09:03 BMI result Body Mass Index 29.4 Tobacco/Smoking Status: Tobacco use Status Tobacco use date assessed 11/06/24 11/06/24 09:03 Patient Tobacco Use Status Never used Tobacco 11/06/24 09:03 e-Cigarette/Vaping Use Never Used 11/06/24 09:03 PHQ-9: PHQ-9 Score PHQ-9: Total score 0 11/06/24 09:03 Depression Screening Interpretation: Negative Thrive Assessment: Date of Thrive Assessment Date Thrive assessed 11/06/24 11/06/24 09:03 Currently or been in a relationship where the following occur: No concerns reported Coding Level of Care Code Est Pt Level 5 (85337) Complex EM visit Add On G2211 Diagnoses IVETT (generalized anxiety disorder) F41.1 control counseling Z30.09 Mild intermittent asthma in adult without complication J45.20 Seasonal allergies J30.2 Additional Codes Asthma Control Questionnaire - ACT Interpretation: Negative ([id number]) IVETT-7 Assessment Billing - IVETT-7 Assessment Tool: IVETT-7 Assessment 40418 ([id number]) PHQ-9 - 81743 - PHQ-9 Billing: Yes ([id number]) Assessment & Plan Assessment & Plan (1) IVETT (generalized anxiety disorder): Comment: Great improvement in her symptoms with use of paroxetine 10mg QD, continue. bring back in 6 months Code(s): F41.1 - Generalized anxiety disorder Category: Medical (2) control counseling: Code(s): Z30.09 - Encounter for other general counseling and advice on contraception Category: Medical (3) Mild intermittent asthma in adult without complication: Comment: on TARA only with sparing use Plan: continue was on flovent in past, does not feel its needed at this time Code(s): J45.20 - Mild intermittent asthma, uncomplicated Category: Medical (4) Seasonal allergies: Code(s): J30.2 - Other seasonal allergic rhinitis Category: Medical Plan . 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
[2024-11-06 09:03] VITALS: BP 98/68; PULSE 84; RESP 12; TEMP 36.4; O2SAT 98; BMI 29.4
--- OUTSIDE RECORDS SUMMARY | 2024-11-06 09:35 | XMS_ITS | Data Portability ---
Author Organization [employer]elliott [facility] [address] Address [address] [place] [address] Assessment Encounter Date Assessment Date Assessment LastModified by Organization Details LastModified Time 08/03/2022 08/03/2022 Consistent with sinus congestion, no bacterial infection. Symptomatic treatment discussed. Not available 08/03/2022 10:15:33 Plan of Treatment Reminders Order Date Submit Date Provider Last Modified By Organization Details Last Modified Time Details Appointments None recorded. Lab rapid strep group A, throat 2022 023 [email or web address] _[facility], [address] [place] [address], [phone], 10:02:40 Referral cardiologis t referral 2022 023 [email or web address] Reagan Taylor MD, [address] [facility], [place], [address], 3 12:07:56 neurologist referral 2022 023 [email or web address] [facility], [address] [place] [address], [address], 12:07:57 Procedures None recorded. Surgeries None recorded. Imaging electrocard iogram 2022 023 [email or web address] _matteo mcknight, [address] [place] [address], [phone], 12:07:56 Medication Orders doxycycline hyclate 100 mg capsule 2023 024 [facility], [address] [place], [address], 4 14:56:46 amoxicillin 500 mg capsule 2022 023 [facility], [address] [place], [address], 3 10:31:55 Patient TargetsNo targets recorded. Patient Instructions Encounter Date Encounter Id Patient Instructions Last Modified By Organization Details Last Modified Time 08/03/2022 [id number] Acute Sinusitis: Care Instructions Not available 08/03/2022 10:12:57 saline nasal washes: care instructions Not available 08/03/2022 10:12:57 Recommend Neti p ot daily, add Sudafed for 7-10 days. Not available 08/03/2022 10:12:57 08/05/2022 [id number] Based on your Presentation, Exam, and Lab Testing you are being diagnosed with Strep Throat. Your Rapid Strep Test was positive. I am going to prescribe you and antibiotic to cover this infection. Please be sure to complete the full course of this antibiotic to prevent antibiotic resistance. It is also important to complete this antibiotic because this infection is what causes Scarlet Fever/Rheumatic Heart Disease. Antibiotics will typically take 4-5 days to start to work with symptom improvement. The following are my other recommendations to help with symptoms and is important for this diagnosis: 1. Do not share any food or drinks - strep is passed through direct saliva exchange (NOT IN THE AIR) 2. Change your toothbrush in 3-4 days so that you don't re-infect yourself after you complete the antibiotic. 3. Take Ibuprofen or Tylenol if you do not have any allergies to these medications. If you take a blood thinner you should not take NSAIDS like Ibuprofen. These medication will help with the inflammation in your respiratory tract which should help the cough. 4. Do not take any Cold Medications that have a Decongestant in it - this will dry out your throat and make the sore throat worse. 5. Drinking Hot Tea with honey can help coat and soothe your throat. 6. You would be considered contagious for the next 24-48 hours, or until fever resolves. I would be seen again if you develop any of the following symptoms. 1. Fever > 101.0 2. Stiff neck - where you can't turn your neck 3. Trouble swallowing your saliva - drooling 4. Swelling of a lymph node in your throat that is painful to touch 5. Difficulty breathing 6. Severe Headache Thank you for using [facility] today, please feel free to contact our office if you have any questions or concerns. Not available 08/05/2022 09:59:34 06/08/2023 [id number] chest pain: care instructions [email or web address] Not available 06/08/2023 11:42:40 chest pain education [email or web address] Not available 06/08/2023 11:42:40 You have been advised to go now to the Emergency Department for further evaluation of your chest pain and left arm heaviness sensation. You have declined to go to the ER and have been advised of the potential adverse consequences of this decision including but not limited to heart attack, stroke, permanent disability, . You are competent to make this decision. A referral has been made to Cardiology and Neurology for you. If the providers that you have been referred to do not accept your insurance then call [facility] back with the name of specialists that accept your insurance and your referrals will be re-directed. Follow-up with a primary care doctor as soon as possible. You are encouraged to change your mind after leaving [facility] to go to the Emergency Department for evaluation and most certainly if your symptoms worsen. 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 Normal EKG. Referring Physician: Juliet Hughes, Urgent Care, Encounter Date: 06/08/2023 Neurologist Referral for Par esthesia of upper limb Left arm heaviness sensation without objective neurological deficit for 3 weeks. Referring Physician: Juliet Hughes, Urgent Care, Encounter Date: 06/08/2023 Results Created Date Observation Date Name Description Value Unit Range Abnormal Flag Note LastModifiedBy Organization Detail LastModifiedTime 08/05/19 23 08/05/2022 rapid strep group A, throa t Unknown Analyte Normal = Negati ve Not Available [address] [place], [address], 08/05/2022 08:49:19 08/05/19 23 08/05/2022 rapid strep group A, throa t Unknown Analyte positi ve Not Available [address] [address] [facility], [place], [address], 08/05/2022 08:49:19 06/08/20 23 06/08/2023 elect rocar diogr am No observ ation record ed. DON _[facility] [address] [place], [address], 06/08/2023 12:07:37 06/08/20 elect rocar diogr am No observ ation record ed. LOWNDES _matteo [address], [address], 06/08/2023 15:54:20 06/08/20 elect rocar diogr am No observ ation record ed. DON _[facility] [address] [place], [address], 06/08/2023 19:15:26 Result Notes None recorded. Problems Name Problem SNOMED Code Status Onset Date Resolution Date Notes Provider Name and Address Organization Details Recorded Time Anxiety 57230171 Active Shannan ellis PA - [facility] 06/08/2023 10:33:01 Asthma 367729257 Active 023 Isabella ellis PA - [facility] 08/03/2022 09:41:35 Problem Notes None recorded. Procedures Surgical History None recorded. Imaging Results Imaging Date Name Status LastModified by Organization Details LastModified Time 06/08/2023 electrocardiogram completed DON [address] [address] [place], [address], 06/08/2023 12:07:37 06/08/2023 electrocardiogram completed DON [address] [address] [place], [address], 06/08/2023 15:54:20 06/08/2023 electrocardiogram completed DON [facility] [address] [place], [address], 06/08/2023 19:15:26 Procedure Notes None recorded. Medical Equipment None Reported. Allergies No known drug allergies Medications Name Sig Start Date Stop Date Status Note LastModified by Organization Details LastModified Time amoxicillin 500 mg capsule Take 1 capsule 3 times a day by oral route for 10 days. 06/08 completed Not Available Not Available Not Available doxycycline hyclate 100 mg capsule Take 1 capsule twice a day by oral route for 10 days. 2023 active Not Available Not Available Not Avai labbere 07/23 (28) 1 mg-20 mcg (21)/75 mg (7) tablet active Not Available Not Available N ot Available albuterol sulf 90 mcg/actuati on breath activated powder inhaler,sen sor Inhale 2 puffs every 4 hours by inhalatio n route. active Not Available Not Available No t Available Vitals Date Recorded Body height Body mass index (BMI) Body weight Pain severity - 0-10 verbal numeric rating [Score] - Reported Respiratory rate Oxygen saturation Oxygen saturation in Arterial blood by Pulse oximetry Heart rate Body temperature Systolic blood pressure Diastolic blood pressure Provider Name and Address Organization Details Last Updated DateTime 3 152.4 cm 27.3 kg/m2 90937.9 3 g 5 18 /min 100 % 100 % 72 /min 98.3 [degF] 114 mm[Hg] 75 mm[Hg] Shannan ALEX - [facility] 3 10:30:57 Date Recorded Body height Body mass index (BMI) Body weight Pain severity - 0-10 verbal numeric rating [Score] - Reported Respiratory rate Body temperature Oxygen saturation Oxygen saturation in Arterial blood by Pulse oximetry Heart rate Systolic blood pressure Diastolic blood pressure Provider Name and Address Organization Details Last Updated DateTime 4 152.4 cm 27.3 kg/m2 80003.9 3 g 0 16 /min 97.7 [degF] 99 % 99 % 91 /min 123 mm[Hg] 77 mm[Hg] MERRILL WING PA - [facility] 4 14:46:43 Date Recorded Body height Oxygen saturation Oxygen saturation in Arterial blood by Pulse oximetry Pain severity - 0-10 verbal numeric rating [Score] - Reported Heart rate Respiratory rate Body temperature Body mass index (BMI) Body weight Systolic blood pressure Diastolic blood pressure Provider Name and Address Organization Details Last Updated DateTime 3 152.4 cm 99 % 99 % 4 95 /min 20 /min 98.4 [degF] 28.6 kg/m2 93507.2 9 g 106 mm[Hg] 76 mm[Hg] Isabella Ace PA - [facility] 3 09:42:56 Date Recorded Body height Body mass index (BMI) Body weight Pain severity - 0-10 verbal numeric rating [Score] - Reported Oxygen saturation Oxygen saturation in Arterial blood by Pulse oximetry Heart rate Respiratory rate Systolic blood pressure Diastolic blood pressure Provider Name and Address Organization Details Last Updated DateTime 3 152.4 cm 28.5 kg/m2 72072.4 9 g 8 99 % 99 % 101 /min 18 /min 122 mm[Hg] 82 mm[Hg] Candace Echeverriashanel [place] - [facility] 3 08:53:05 Social History Question Answer Notes LastModified by Organizat ion Details LastModified Time Tobacco Smoking Status Never Smoker Isabella ellis PA - [facility] 08/03/2022 09:41:44 What Is Your Level Of Alcohol Consumption? None Information not available 08/03/2022 Are You Currently Employed? Yes [employer] Information not available 06/08/2023 Have You Had A Flu Shot This Season? No Information not available 06/08/2023 Have You Had Direct Contact, Or Contact During Intimacy, With Monkeypox Rash, Scabs, Or Body Fluids From A Person With Monkeypox? No Information not available 08/03/2022 What Is Your Relationship Status? Single Information not available 06/08/2023 Do You Use Any Illicit Or Recreational Drugs? No Information not available 08/03/2022 Have You Recently Traveled Abroad? No Information not available 08/03/2022 Do You Or Have You Ever Used Any Other Forms Of Tobacco Or Nicotine? No Information not available 08/03/2022 Sex: Unknown Functional Status None recorded. Mental Status None recorded. Family History Relationship Description Onset Age of this Age Resolved Age Notes LastModified by Organization Details LastModified Time Father No current problems or disability Not available 08/03 09:41:37 Mother No current problems or disability Not available 08/03 09:41:37 Medical History No medical history recorded. Gynecological History Statement/Question Response Date of LMP 06/24/2023 Is there any chance of ? No LMP Approximate Obstetrics History GPAL:G 0 P 0 0 0 0 Past Encounters Encounter ID Performer Location Encounter Start Date Encounter Closed Date Diagnosis/Indication Diagnosis SNOMED-CT Code Diagnosis ICD10 Code Diagnosis Note [id number] [facility] [address] [place] [address] 11/26/2018 14:55:43 11/26/2018 15:55:52 [id number] [address] [facility] [address] [place] [address] 11/18/2018 14:47:26 11/18/2018 15:36:31 [id number] [facility] [address] [address] [place] [address] 04/22/2017 16:37:18 04/22/2017 17:31:11 [id number] Luis Fernando Rodas DO [facility] [address] [place] [address] 08/03/2022 09:25:51 08/03/2022 10:14:43 Congestion of nasal sinus 40095503 R09.81 [id number] [facility] [address] [place] [address] 08/05/2022 08:25:42 08/05/2022 10:11:51 Streptococcal sore throat 22337802 J02.0 [id number] Juliet Hughes [place] [address] [place] [address] 06/08/2023 10:16:14 06/08/2023 12:07:56 Chest pain 20519079 R07.9 Paresthesi a of upper limb 69308451 R20.2 [id number] [facility] [address] [place] [address] 07/15/2023 14:25:24 07/15/2023 14:58:39 Acute bacterial sinusitis 32970341 J01.90 You were seen for a likely bacterial sinus infection. You were prescribed antibiotic s. - Use the medication s prescribed . - Decongesta nts if tolerated. - Recommend recheck if fever develops or no improvemen t in 5-7 days. - Use saline nasal spray or neti-pot flushes once to twice a day to loosen mucus in sinuses. - if no resolution or improvemen t within 2 weeks recheck at [facility] or PCP -.Use a cool mist humidifier in the room that you sleep to add moisture to the air, which should soothe the airways and help loosen any mucus that may be present. -Call 911 or proceed to nearest Emergency Department if you develop shortness of breath, chest pain, severe headache or other symptoms that concern you. Be aware antibiotic use can interfere with oral control, ensure you are using a backup method until your next cycle Health Concerns Section Related Observation LastModified by Organization Detai ls LastModified Time None Recorded Concern Status LastModified by Organization Details LastModified Time None Recorded Advance Directives Directive None Recorded Payers Encounter Date Sequence Insurance Name Policy Number Policy Lara Covered Member ID Lara Member ID Guarantor Name 11/26/2018 1 [facility] [employer] PL[employer] (HMO) [id number] Rica Lapan [id number] [place] 08/03/2022 1 [facility] PLANS [facility] TYPE I (O) [id number] Rica Lapan [id number] Rica Lapan 08/05/2022 1 [facility] - DIRECT CONNECTORCARE TYPE I (HMO) [id number] Rica Lapan [id number] Rica Lapan 06/08/2023 1 [facility] - DIRECT CONNECTORCARE TYPE I (HMO) [id number] Rica Lapan [id number] Rica Lapan 07/15/2023 1 [facility] - DIRECT CONNECTORCARE TYPE I (HMO) [id number] Rica Lapan [id number] Rica Lapakaren Notes Date Note Type Note Provider Name and Address Organization Details Recorded Time 3 text/html B/L ear pressure x 2 weeks, L > R. Accompanied by crackling noise and intermittent itchy. Has chronic post nasal drip. Used a nasal spray without improvement last year. No URI symptoms. No self treatment, I don't usually take medication Luis Fernando Rodas DO [address] [place], [address], [employer] 08/03/2022 10:16:25 3 text/html Sore throatReported bypatient.Source of patient informationInformation obtained from patient; Patient arrived at Urgent Care ambulatory Location:throat Severity:moderate Quality:hurts to swallow Onset/Timin days Associated Symptoms:no cough; no sputum production; no shortness of breath; no wheezing; no sinus pain; no vomiting; no nausea; No hoarseness;sore throat Context:sick contact Modifying Factors:exposed to Strep household *Notes:Boyfriend tested positive 2 days ago. Ear pain on the left side has been ongoing. History of strep. No stiff neck. no fever. Able to swallow saliva and breath. ABI SIMPSON [address] [place], [address], [employer] 08/05/2022 10:04:57 3 text/html Chest PainReported bypatient.source of patient informationInformation obtained from patient; Patient arrived at Urgent Care ambulatory Location:chest; Left upper anterior chest. Intermittent heaviness LUE. Quality:Dull, intermittent, fleeting. Severity:mild Duration:Seconds to minutes. Onset/Timing:intermittent Context:Random. Alleviating Factors:nothing gives relief Aggravating Factors:nothing makes it worse Associated Symptoms:no dyspnea; no decrease in exercise capacity; no fatigue; no associated palpitations; no associated dizziness;nocturnal episodes;resting episodesNotes:28 year old female presenting for evaluation of intermittent, dull, fleeting left upper anterior chest discomfort for the past 3 weeks. She also reports intermittent but longer lasting sensation of heaviness of her LUE diffusely from shoulder to fingers for the past 3 weeks. The chest and arm symptoms are not necessarily occurring at the same time. She can go a couple of days without the symptoms then they return. No aggravating or relieving factors for either complaint. No donny numbness or weakness of the LUE extremity or any other extremity. The patient reports she has anxiety that is not currently being treated due to insurance issues. She also has no PCP for the same reason. She has been writing off her symptoms as being caused by anxiety but now would like to have organic reasons ruled out. No headache, visual/speech/gait disturbance. No neck pain. No fever, chills, shortness of breath, cough, leg pain or swelling. No hx of HLD. She is a non-smoker. No prior cardiac issues. She takes oral contraceptives. Juliet Hughes MD [address] [place], [address], PA - [facility] 06/08/2023 12:14:06 4 text/html Sinus Complaints UCReported bypatient.Location:pain behind the eyes both;sinus pain;facial pain;pain in the cheek;sinus pressure Associated Symptoms:no fever; no difficulty breathing; no nausea or vomiting; no sore throat; No post nasal drip; no nasal passage blockage; no nasal itching; no eye itching; no cough; no dizziness;nasal discharge from both nostrils;ear fullness Quality:minimal discomfort;worsening Context:no recent sick contacts; not worse with seasonal allergen exposure;recent upper respiratory infection Risk Factors:no current smoking or tobacco use; no history of nasal trauma Alleviating factors:nothing gives relief Aggravating factors:nothing makes it worse Prior Treatmentoral decongestant ABI Powres [address] [place], [address], [place] - [facility] 07/15/2023 14:59:45 OBGyn Episode No OBEpisode recorded.
== END 2024-11-06 09:24 | disposition home or self-care (01) ==
LOC: HO.HMCFM 08:58
PROVIDERS: PCP Nurse Practitioner Family; Visit Provider Nurse Practitioner Family
DX: F41.1 Generalized anxiety disorder (principal); Z30.09 Encounter for other general counseling and advice on contraception; J45.20 Mild intermittent asthma, uncomplicated; J30.2 Other seasonal allergic rhinitis

== ENCOUNTER → 2024-11-06 08:57 | Outpatient (BNVA) | payer BC, SELFPAY | PROVIDERS: PCP Nurse Practitioner Family; Visit Provider Nurse Practitioner Family | DX: F41.1 Generalized anxiety disorder (principal); Z30.09 Encounter for other general counseling and advice on contraception; J45.20 Mild intermittent asthma, uncomplicated; J30.2 Other seasonal allergic rhinitis; Z79.899 Other long term (current) drug therapy | CPT/HCPCS: 96127; 96160 ==

== ENCOUNTER 2025-05-16 10:19 | Outpatient (REF) | payer BC, SELFPAY ==
[2025-05-16 14:30] LABS: Hematocrit 45.0 % (37.0-47.0); Hemoglobin 14.8 g/dl (12.0-16.0); Mean Corpuscular HGB Conc 32.9 g/dl (31.0-35.0); Mean Corpuscular Hemoglobin 28.2 pg (27.0-33.0); Mean Corpuscular Volume 85.9 fL (80.0-98.0); NRBC Abs Auto 0.030 X10*3/uL (0.0-0.012); NRBC Pct Auto 0.5 /100WBC (0.0-0.2); Platelet Count 209 X10*3/uL (160-400); Red Blood Count 5.24 X10*6/uL (4.20-5.50); White Blood Count 6.5 X10*3/uL (4.8-10.8)
[2025-05-16 15:12] LABS: Alanine Aminotransferase 45 U/L (0-31); Albumin Level 4.7 g/dL (3.5-5.0); Alkaline Phosphatase 108 U/L (39-117); Anion Gap 12 (12-20); Aspartate Amino Transferase 33 U/L (5-31); Blood Urea Nitrogen 13 mg/dL (9-16); Calcium 9.4 mg/dL (8.4-10.2); Carbon Dioxide 26 mmol/L (22-29); Chloride 108 mmol/L (96-108); Cholesterol 196 mg/dL (<200); Estimated Glomerular Filt Rate > 60; HDL Cholesterol 48 mg/dL (>40); Potassium 3.7 mmol/L (3.3-5.1); Sodium 142 mmol/L (135-145); Total Protein 7.5 g/dL (6.5-8.0); Triglycerides 117 mg/dL (<150)
[2025-05-16 15:33] LABS: Folate 9.4 ng/mL (> or = 4.0); Vitamin B12 265 pg/mL (200-900)
== END 2025-05-16 10:20 | disposition home or self-care (01) ==
LOC: HO.WFDLDS 10:19
PROVIDERS: PCP Nurse Practitioner Family; Visit Provider Nurse Practitioner Family
DX: Z00.00 Encounter for general adult medical examination without abnormal findings (principal); F41.1 Generalized anxiety disorder; J30.2 Other seasonal allergic rhinitis; J45.20 Mild intermittent asthma, uncomplicated; Z28.21 Immunization not carried out because of patient refusal; Z79.899 Other long term (current) drug therapy; Z92.89 Personal history of other medical treatment
CPT/HCPCS: 36415; 80053; 80061; 82306; 82607; 82746; 83036; 84443; 85027; 96127; 96160; 99212

== ENCOUNTER 2025-05-16 10:19 | Outpatient (AMB) | payer BC, OTHER, SELFPAY ==
--- NOTE | 2025-05-16 10:22 | A.OFFPC_ITS ---
Vital Signs 05/16/25 10:25 Height 5 ft Weight 154 lb BMI 30.1 BP 120/70 Blood Pressure Location Rt brachial Position Sitting Respiration 12 Pulse 77 Pulse Source Pulse Oximeter Temp 97.7 F Temp Source Oral Pulse Oximetry (%) 100 Oxygen Delivery Method Room Air Intake Visit Reasons: Nov CPE reschedule Intake Note: CPE. Watershed Tender Required: No Allergies amoxicillin Allergy (Severe, Verified 05/16/25 10:22) Anxiety Medication List - Last Reconciled 05/16/25 by AKHIL AraujoP- albuterol sulfate 90 mcg/actuation 2 inhalations inhalation QID PRN cetirizine (Zyrtec) 10 mg PO DAILY PRN paroxetine HCl 10 mg PO DAILY Tobacco use date assessed: 05/16/25 Dental Screening Dental Screen Date: 05/16/25 Did you have a dental visit in the last 12 months?: Yes Did you have a dental problem in the last 6 months where you did not have access to dental care?: No Was dental information given to patient?: Patient has dentist HPI HPI Comments History of Present Illness Details 30-year-old female with generalized anxi ety disorder, mild intermittent asthma, seasonal allergies, constipation, hemorrhoids, obesity Social: recently . Family hx: maternal uncle lung ca d/t smoking, no other changes Surgical hx: None Health maintenance Pap UTD, 04/2024 Vaccines: declines flu 05/26/25, unsure about Tdap however declines today Specialists CHANGE OVER [facility] 2023, wear glasses, will schedule f/u Dentist routine History of Present Illness The patient is a 30-year-old female presenting for a complete physical exam. Generalized Anxiety Disorder: - The patient has a history of generaliz ed anxiety disorder, for which she takes paroxetine. - She feels the medication is still effe ctive, though she experiences some manageable breakthrough anxious thoughts without panic attacks. - wonders about increasing Gynecological Follow-up and Menstrual Irregularity: - The patient has a history of abnormal Pap smears and had another one performed by a new clinical informatics manager. - She was being evaluated for possible p olycystic ovary syndrome (PCOS), and her clinical informatics manager discontinued her control. - She has been unsuccessful in reaching the clinical informatics manager's office for a follow- up appointment. - Since stopping control, she repo rts resolution of premenstrual depressive symptoms and bloating. - Her periods have been irregular since discontinuation; after two normal cycles, her last cycle was significantly longer, and she has not had a period since April 22. Mild Intermittent Asthma: - The patient has a history of mild inte rmittent asthma and uses an albuterol inhaler. - Her breathing has been good, and she h as not used her inhaler in a while. - Declined Tdap and Flu vaccines Seasonal Allergies: - The patient has a history of seasonal allergies and uses Zyrtec as needed. Obesity: - The patient's BMI is 30.1. Laboratory Screening: - Last laboratory testing was in 2022, [facility] showed a normal complete blood cou nt, kidney function, liver function, and diabetes screening. - A mild elevation in bilirubin was note d at that time. - The patient has never had a cholestero l screen performed. Past Medical History - Generalized anxiety disorder, managed with paroxetine - Mild intermittent asthma, managed with albuterol as needed - Seasonal allergies, managed with Zyrte c as needed - History of abnormal Papanicolaou smear s - History of constipation, currently res olved - Past emergency room visit for chest pa in 2022 Past Surgical History - Denies any past surgeries. Family History - No new changes in family medical histo ry reported. Social History - Marital Status: . - Travel: Recently returned from a [employer] and is planning a trip to [place]. Health Maintenance - Vaccinations: Patient declines the flu shot and Tdap vaccine. - Dental Care: Sees a dentist routinely, with the last visit occurring recently. - Vision Care: Typically has an eye exam every other year and plans to schedule an appointment for eye strain. - Gynecological Care: Has a history of a bnormal Pap smears and had a recent one performed by a new clinical informatics manager; follow-up is pending. - Laboratory Screening: Patient agrees t o lab work. Orders placed for a diabetes screen, cholesterol panel, vitamin D, B12, and a urinalysis. Review of Systems - Constitutional: Denies recent surgerie s. - Eyes: Reports eye strain. - Respiratory: Denies any issues with br eathing. - Gastrointestinal: Reports resolution o f previous constipation. - Genitourinary: Denies dysuria. Reports irregular menses. Denies possibility of . - Endocrine/Reproductive: Reports breast soreness with her period, but denies other menstrual symptoms like bloating or depressive episodes since stopping control. - Psychiatric: Reports manageable breakt hrough anxious thoughts. Denies panic attacks. Physical Exam General: Well developed, well nourished, in no acute distress. Appears stated age. Head: Normocephalic, atraumatic. Eyes: Pupils are equal, round and reactive to light and accommodation. Conjunctivae are clear. Scleras nonicteric bilat. Vision grossly normal, but patient reports needing reading glasses and experiencing eye strain. Ears: TMs clear AU, EACS WNL. A teeny tiny bit of wax noted R EAC, not concerning. Nose: Patent, without discharge. Neck: No carotid bruit bilat. Supple, no adenopathy or thyromegaly. Breast: Edu on SBE Lungs: Clear to auscultation bilaterally. No rales, rhonchi or wheeze noted. Good air flow in all arreguin. Heart: Regular rate and rhythm. No murmurs, click, rubs or gallops are noted. Abdomen: Bowel sounds present in all quadrants. The abdomen is soft, nontender, with no masses or organomegaly noted. No hernias are noted. : Deferred. Reviewed recommendations for routine CHANGE OVER. Patient reports having had a Pap smear in April 2024. Pulses: Peripheral pulses are equal and palpable bilaterally. Extremities: No clubbing, cyanosis nor edema is noted. Neurologic: Gait and station normal. Cranial Nerves 2-12 intact. Motor strength grossly symmetrical and intact. No sensory loss. Balance normal. Skin: No rashes, ulcers, or lesions noted. Turgor is good. Skin color is good. Hair and nails are without abnormalities. Psych: Normal eye contact, affect and mood appropriate, and normal interactions. Patient is alert and appropriate to context. Reports generalized anxiety disorder, managed with paroxetine, with some anxious thoughts slipping through but manageable. Results - Laboratory results from 2022 were revi ewed: CBC, kidney function, liver function, and diabetes screening were normal. - A mild elevation in bilirubin was note d on 2022 labs. - Pan[facility] were normal. Medical Decision Making The patient is a 30-year-old female presenting for her complete physical exam. Her medical history is notable for generalized anxiety disorder, mild intermittent asthma, and obesity with a BMI of 30.1. For her anxiety, she reports some manageable breakthrough symptoms on her current dose of paroxetine. We agreed to a trial increase of her paroxetine to 15 mg daily, and she will self-adjust using her current medication supply. We will follow up in 6-8 weeks to assess her response. A refill for her albuterol inhaler was also provided. Her gynecological health is a grijalva point of concern, with a history of abnormal Pap smears and a pending workup for PCOS. The patient has had difficulty scheduling a follow-up, and I have encouraged her to be persistent. Notably, cessation of her oral contraceptive has resolved significant depressive and physical symptoms, though it has resulted in menstrual irregularity. For health maintenance, we discussed labs. Considering she has never had a cholesterol screen and her BMI is in the obese range, it is important to establish a baseline. I have ordered a diabetes screen, lipid panel, vitamin D, B12, and a urinalysis, and will also re-check the previously noted mild hyperbilirubinemia. Plan 1. Complete Physical Examination - Comprehensive physical exam performed. - Patient declined influenza and Tdap va ccinations at this visit. - Advised patient to schedule a follow-u p eye exam for eye strain. 2. Generalized Anxiety Disorder - Increase paroxetine dose to 15 mg madisyn y by splitting her current tablets. - A new prescription was generated but n ot sent, as the patient has an adequate supply at home. - Schedule a follow-up visit in 6-8 week s to assess the response to the medication adjustment. 3. Mild Intermittent Asthma - A prescription refill for an albuterol inhaler was sent to the pharmacy. 4. History Of Abnormal Papanicolaou Smea r / Irregular Menstruation - Patient was advised to contact her health and wellness coach shift supervisor melting again to schedule a follow-up appointment for ongoing evaluation. 5. Health Maintenance And Laboratory Scr eening - Ordered labs for today including a renetta betes screen, a baseline cholesterol panel, vitamin D, B12, and a urinalysis. - Will also repeat bilirubin to re-evalu ate prior mild elevation. - Lab results will be posted to the [facility] ent portal, and the patient will be contacted directly for any emergent findings. 6. Obesity - Noted BMI of 30.1. - Ordered screening labs for associated comorbidities, including a diabetes screen and lipid panel. Patient Instructions - Starting tomorrow, increase your parox etine dose to 15 mg each day. You can do this by taking one and a half of your current tablets. - A refill for your albuterol inhaler randle s been sent to your pharmacy. - Please try to call your clinical informatics manager's office again to schedule your follow-up appointment. - Today, please stop at the front desk worker t o get your lab work done. This includes blood tests and a urine sample. - Your lab results will be posted on the patient portal within about 24 hours. We will call you if anything is urgent, otherwise we will discuss the results at your next visit. - Schedule a follow-up appointment here in about 6 to 8 weeks to check on your medication change. - Remember to schedule an appointment wi th your eye doctor for your eye strain. Consent The patient verbally consented to undergoing laboratory testing after the rationale was explained. The purpose of the tests, including establishing a baseline cholesterol level, screening for diabetes, and checking vitamin levels, was reviewed. The patient was informed that results would be available on the patient portal and that she would be contacted if any emergent issues arose. Patient was informed and verbally consented to the use of an ambient scribe for clinic note documentation during this visit. An additional 10 minutes was spent addressing the problem(s) noted at todays visit. This includes time spent before the visit reviewing the chart, time spent during the visit, and time spent after the visit on documentation reviewing laboratory results, diagnostic imaging, medications, performing a medically necessary evaluation, counseling on diagnoses, care coordination, ordering appropriate tests, ordering appropriate medications, review of tests performed by other providers, reporting test results with the patient, communication with other healthcare providers. [facility] Medical History Anxiety Surgical History [place] teeth extracted Family History Other Mental health disorder Substance use disorder Social History Household Members: Spouse Housing: House Are you a primary ocular care aide to a significant other at home: No Do you presently have visiting nurse or other home services: No 75 years or older and lives alone: No Alcohol intake: never Patient Tobacco Use Status: Never used Tobacco e-Cigarette/Vaping Use: Never Used Second Hand Smoke Exposure: No service: No Current occupational status: employed Current occupation: Patient works at the [employer] Sexual orientation: Straight/Heterosexual Gender identity: Female Cognitive needs: No Hearing needs: No Vision needs: Yes (needs a vision exam ) Questionnaire PHQ-9 Over the last 2 weeks, how often have you been bothered by any of the following problems? 1. Little interest or pleasure in doing things: not at all 2. Feeling down, depressed, or hopeless: not at all 3. Trouble falling or staying asleep, or sleeping too much: not at all 4. Feeling tired or having little energy: not at all 5. Poor appetite or overeating: not at all 6. Feeling bad about yourself - or that you are a failure or have let yourself or your family down: not at all 7. Trouble concentrating on things, such as reading the newspaper or watching television: not at all 8. Moving or speaking so slowly that other people could have noticed. Or the opposite - being so fidgety or restless that you have been moving around a lot more than usual: not at all 9. Thoughts that you would be better off or of hurting yourself in some way: not at all Total score: 0 Depression Screening Interpretation: Negative Depression Screening Done: Yes 89424 - PHQ-9 Billing: Yes Source: Developed by Drs. Oliverio Walton, Avelina Humphreys, Jacek Plata and colleagues, with an educational coy from [employer]. Thrive Questionnaire Date Thrive assessed: 05/16/25 I am a: Patient What is your living situation today?: I have a steady place to live Within the past 12 months, did the food you bought not last and you didn't have the money to get more?: Never true Within the past 12 months, did you worry whether your food would run out before you got money to buy more?: Never true Do you have trouble paying for medicines?: No Do you have trouble getting transportation to medical appointments?: No Do you have trouble paying your heating and electricity bill?: No Do you have trouble taking care of your child, family member or friend?: No Do you have trouble with day-to-day activities such as bathing, preparing meals, shopping, managing finances, etc.?: No Are you currently unemployed and looking for a job?: No Are you interested in more education?: No Please select the resources that you would like help with: None Currently or been in a relationship where the following occur: No concerns reported THRIVE Score: 0 AUDIT C Alcohol Use Questionnaire (AUDIT-C) 1. How often do you have a drink containing alcohol?: Never 3. How often do you have six or more drinks on one occasion?: Never Total Score: 0 Score Reviewed/Action Taken: Yes IVETT-7 AMB Questionnaire IVETT-7 Date IVETT - 7 assessed: 05/16/25 Feeling nervous, anxious, or on edge: 0 = Not at all Not being able to stop or control worryin = Not at all Worrying too much about different things: 0 = Not at all Trouble relaxin = Not at all Being so restless that it is hard to sit still: 0 = Not at all Becoming easily annoyed or irritable: 0 = Not at all Feeling afraid as if something awful might happen: 0 = Not at all Total IVETT-7 score (0-4 normal; 5-9 mild; 10-14 moderate; 15-21 severe): 0 Source: Developed by Drs. Oliverio Walton, Avelina Humphreys, Jacek Plata and colleagues, with an educational coy from [employer]. IVETT-7 Assessment Billing IVETT-7 Assessment Tool: IVETT-7 Assessment 75195 ACT Questionnaire In the past 4 weeks, how much of the time did your asthma keep you from getting as much done at work, school or at home?: None of the time During the past 4 weeks, how often have you had shortness of breath?: Not at all During the past 4 weeks, how often did your asthma symptoms wake you up at night or earlier than usual in the morning?: Not at all During the past 4 weeks, how often have you had to use your rescue inhaler or nebulizer medication?: Not at all How would you rate your asthma control during the past 4 weeks?: Completely controlled ACT Interpretation: Negative Score: 25 Physical exam (Primary Care) Vital Signs: Last Vital Signs Temp 97.7 F 05/16/25 10:25 Pulse 77 05/16/25 10:25 Resp 12 05/16/25 10:25 BP 120/70 05/16/25 10:25 Pulse Ox 100 05/16/25 10:25 Oxygen Delivery Method Room Air 05/16/25 10:25 BMI result Body Mass Index 30.1 BMI Assessment/Plan discussion: High BMI High, discussed plan: lifestyle Tobacco/Smoking Status: Tobacco use Status Tobacco use date assessed 05/16/25 05/16/25 10:24 Patient Tobacco Use Status Never used Tobacco 05/16/25 10:24 e-Cigarette/Vaping Use Never Used 05/16/25 10:24 PHQ-9: PHQ-9 Score PHQ-9: Total score 0 05/16/25 10:45 Depression Screening Interpretation: Negative Thrive Assessment: Date of Thrive Assessment Date Thrive assessed 05/16/25 05/16/25 10:24 Currently or been in a relationship where the following occur: No concerns reported Coding Level of Care Code Est Pt Level 2 (28625) Est Pt Prev Care 18-39y(57586) Diagnoses Physical exam Z00.00 IVETT (generalized anxiety disorder) F41.1 Seasonal allergies J30.2 Mild intermittent asthma in adult without complication J45.20 Laboratory exam ordered as part of routine general medical examination Z00.00 Influenza vaccination declined Z28.21 Tetanus, diphtheria, and acellular pertussis (Tdap) vaccination declined Z28.21 History of Papanicolaou smear of cervix Z92.89 Additional Codes Asthma Control Questionnaire - ACT Interpretation: Negative ([id number]) IVETT-7 Assessment Billing - IVETT-7 Assessment Tool: IVETT-7 Assessment 83391 ([id number]) PHQ-9 - 70095 - PHQ-9 Billing: Yes ([id number]) Assessment & Plan Assessment & Plan (1) Physical exam: Onset Date: ~05/16/25 Code(s): Z00.00 - Encounter for general adult medical examination without abnormal findings Category: Medical (2) IVETT (generalized anxiety disorder): Code(s): F41.1 - Generalized anxiety disorder Category: Medical (3) Seasonal allergies: Code(s): J30.2 - Other seasonal allergic rhinitis Category: Medical (4) Mild intermittent asthma in adult without complication: Comment: on TARA only with sparing use Plan: continue was on flovent in past, does not feel its needed at this time Code(s): J45.20 - Mild intermittent asthma, uncomplicated Category: Medical (5) Laboratory exam ordered as part of routine general medical examination: Code(s): Z00.00 - Encounter for general adult medical examination without abnormal findings Category: Medical (6) Influenza vaccination declined: Onset Date: ~05/16/25 Code(s): Z28.21 - Immunization not carried out because of patient refusal Category: Medical (7) Tetanus, diphtheria, and acellular pertussis (Tdap) vaccination declined: Onset Date: ~05/16/25 Code(s): Z28.21 - Immunization not carried out because of patient refusal Category: Medical (8) History of Papanicolaou smear of cervix: Onset Date: ~2024 Comment: [facility] Code(s): Z92.89 - Personal history of other medical treatment Category: Medical Plan . Orders: Orders Comprehensive Met. Panel Today Z00.00 - Encounter for general adult medical examination without abnormal findings Hemoglobin A1c Today Z00.00 - Encounter for general adult medical examination without abnormal findings Microalbumin, Random (w Creat) Today Z00.00 - Encounter for general adult medical examination without abnormal findings TSH reflex Free T4 Today Z00.00 - Encounter for general adult medical examination without abnormal findings Complete Blood Count no Diff Today Z00.00 - Encounter for general adult medical examination without abnormal findings Lipid Panel Today Z00.00 - Encounter for general adult medical examination without abnormal findings Vitamin B12 and Folate Today Z00.00 - Encounter for general adult medical examination without abnormal findings Vitamin D 25-OH Total Today Z00.00 - Encounter for general adult medical examination without abnormal findings Medications: Changed From paroxetine HCl 10 mg PO DAILY 90 tabs 1RF To paroxetine HCl 15 mg (1.5 x 10 mg) PO DAILY 135 tabs 1RF 90 days Refilled albuterol sulfate 90 mcg/actuation 2 inhalations inhalation QID PRN 8.5 grams 0RF shortness of breath or wheezing Patient Instructions: Health screenings for women You should visit your health care provider from time to time, even if you are healthy. The purpose of these visits is to: Screen for medical issues Assess your risk for future medical problems Encourage a healthy lifestyle Update vaccinations and other preventive care services Help you get to know your provider in case of an illness Information Even if you feel fine, you should still see your provider for regular checkups. These visits can help you avoid problems in the future. For example, the only way to find out if you have high blood pressure is to have it checked regularly. High blood sugar and high cholesterol levels also may not have any symptoms in the early stages. A simple blood test can check for these conditions. There are specific times when you should see your provider or receive specific health screenings. The [place] Preventive Services Task Force publishes a list of recommended screenings. Below are screening guidelines for women ages 18 to 39. BLOOD PRESSURE SCREENING Your blood pressure should be checked at least once every 3 to 5 years if: Your blood pressure is in the normal range (top number less than 120 mm Hg and bottom number less than 80 mm Hg) You don't have risk factors for high blood pressure Ask your provider if you need your blood pressure checked more often if: The top number is 120 to 129 mm Hg or the bottom number is 70 to 79 mm Hg You have diabetes, heart disease, kidney problems, are overweight, or have certain other health conditions You have a first-degree relative with high blood pressure You are Black You had high blood pressure during a If the top number is 130 mm Hg or greater or the bottom number is 80 mm Hg or greater, this is considered stage 1 hypertension. Schedule an appointment with your provider to learn how you can reduce your blood pressure. Watch for blood pressure screenings in your area. Ask your provider if you can stop in to have your blood pressure checked. BREAST CANCER SCREENING Experts do not agree about the benefits of breast self-exams in finding breast cancer or saving lives. Talk to your provider about what is best for you. A screening mammogram is not recommended for most women under age 40. Your provider may discuss and recommend mammograms, MRI scans, or ultrasounds if you have an increased risk for breast cancer, such as: A mother or sister who had breast cancer at a young age (most often starting screening earlier than the age the close relative was diagnosed) You carry a high-risk genetic marker CERVICAL CANCER SCREENING Cervical cancer screening should start at age 21 years unless your provider advises otherwise. After the first test: Women ages 21 through 29 should have a Pap test every 3 years. Exoprts do not agree on whether HPV testing is recommended for this age group. Women ages 30 through 65 should be screened with either a Pap test every 3 years or the HPV test every 5 years or both tests every 5 years (called cotesting ). Women who have been treated for precancer (cervical dysplasia) should continue to have Pap tests for 20 years after treatment or until age 65, whichever is longer. If you have had your uterus and cervix removed (total hysterectomy), and you have not been diagnosed with cervical cancer or precancer (high grade cervical neoplasia), you do not need cervical cancer screening. CHOLESTEROL SCREENING Cholesterol screening should begin at: Age 45 for women with no known risk factors for coronary heart disease Age 20 for women with known risk factors for coronary heart disease Repeat cholesterol screening should take place: Every 5 years for women with normal cholesterol levels More often if changes occur in lifestyle (including weight gain and diet) More often if you have diabetes, heart disease, kidney problems, or certain other conditions DIABETES SCREENING You should be screened for diabetes starting at age 35 and then repeated every 3 years if you have no risk factors for diabetes. Screening may need to start earlier and be repeated more often if you have other risk factors for diabetes, such as: You have a first degree relative with diabetes. You are overweight or have obesity. You have high blood pressure, prediabetes, or a history of heart disease. Screening for diabetes should be done if you are planning to become and you are overweight and have other risk factors such as high blood pressure. DENTAL EXAM Go to the dentist once or twice every year for an exam and cleaning. Your dentist will evaluate if you need more frequent visits. EYE EXAM Have an eye exam every 5 to 10 years before age 40. If you have vision problems, have an eye exam every 2 years or more often if recommended by your provider. You should have an eye exam that includes an examination of your retina (back of your eye) at least every year if you have diabetes. IMMUNIZATIONS Commonly needed vaccines include: Flu shot: get one every year. COVID-19 vaccine: ask your provider what is best for you. Tetanus-diphtheria and acellular pertussis (Tdap) vaccine: have one at or after age 19 as one of your tetanus-diphtheria vaccines if you did not receive it as an adolescent. Tetanus-diphtheria: have a booster (or Tdap) every 10 years. Varicella vaccine: receive 2 doses if you never had chickenpox or the varicella vaccine. Hepatitis B vaccine: receive 2, 3, or 4 doses, depending on your exact circumstances. Measles, mumps, and rubella (MMR) vaccine: receive 1 to 2 doses if you are not already immune to MMR. Your provider can tell you if you are immune. Ask your provider about the human papillomavirus (HPV) vaccine if: You have not received the HPV vaccine in the past You have not completed the full vaccine series (you should catch up on this shot) Ask your provider if you should receive other immunizations if you have certain health problems that increase your risk for some diseases such as pneumonia. INFECTIOUS DISEASE SCREENING Women who are sexually active should be screened for chlamydia and gonorrhea up until age 25. Women 25 years and older should be screened for chlamydia and gonorrhea if at high risk. Screening for hepatitis C: All adults ages 18 to 79 should get a one-time test for hepatitis C. people should be screened at every . Screening for human immunodeficiency virus (HIV): All people ages 15 to 65 should get a one-time test for HIV. Depending on your lifestyle and medical history, you may also need to be screened for infections such as syphilis and HIV, as well as other infections. PHYSICAL EXAM All adults should visit their provider from time to time, even if they are healthy. The purpose of these visits is to: Screen for disease Assess your risk of future medical problems Encourage a healthy lifestyle Update your vaccinations and other preventive care services Maintain a relationship with a provider in case of an illness Your height, weight, and BMI should be checked at every exam. During your exam, your provider may ask you about: Depression and anxiety Diet and exercise Alcohol and tobacco use Safety issues, such as using seat belts, smoke detectors, and intimate partner violence Your medicines and risk for interactions SKIN SELF-EXAM Your provider may check your skin for signs of skin cancer, especially if you're at high risk, such as if you: Have had skin cancer before Have close relatives with skin cancer Have a weakened immune system OTHER SCREENING Talk with your provider about colon cancer screening if you have a strong family history of colon cancer or polyps, or if you have had inflammatory bowel disease or polyps yourself. Routine bone density screening of women under 40 is not recommended.
[2025-05-16 10:25] VITALS: BP 120/70; PULSE 77; RESP 12; TEMP 36.5; O2SAT 100; BMI 30.1
== END 2025-05-16 10:59 | disposition home or self-care (01) ==
LOC: HO.HMCFM 10:20
PROVIDERS: PCP Nurse Practitioner Family; Visit Provider Nurse Practitioner Family
DX: Z00.00 Encounter for general adult medical examination without abnormal findings (principal); F41.1 Generalized anxiety disorder; J45.20 Mild intermittent asthma, uncomplicated; E66.9 Obesity, unspecified; Z68.30 Body mass index [BMI] 30.0-30.9, adult; E78.00 Pure hypercholesterolemia, unspecified; J30.2 Other seasonal allergic rhinitis; Z28.21 Immunization not carried out because of patient refusal; Z92.89 Personal history of other medical treatment